=== PATIENT | female | born 1950 | race Caucasian/White ===

== ENCOUNTER 2021-03-25 13:35 | Outpatient (CLI) | payer MEDICARE, OTHER | END 2021-03-25 13:36 | disposition critical access hospital (66) | LOC: EMS 13:35 | DX: R06.02 Shortness of breath (principal); L98.9 Disorder of the skin and subcutaneous tissue, unspecified | CPT/HCPCS: A0425; A0427 ==

== ENCOUNTER 2021-03-25 13:49 | Inpatient (IN) | payer MEDICARE, OTHER ==
[2021-03-25] MEDS ORDERED: IPRATROPIUM/ALBUTEROL 3 ML NEB INH STA (14:08)
--- NOTE | 2021-03-25 14:15 | ED Physician Documentation ---
PD HPI DYSPNEA - Stated complaint Stated Complaint: SOA - Chief complaint Chief Complaint: Cardiac - History obtained from History obtained from: Patient - Additional information Additional information: Patient comes emergency department chief complaint of increasing lower extremity swelling and shortness of breath over the last several weeks. She states that she has a history of lymphedema that started sometime after treatment for an abdominal cancer in the early . She states that the swelling did not come up right away but developed symptoms afterward and she was told she had lymphedema. Patient states that it has been at its worst for about the past year. Patient denies any fever chills. She does not generally use oxygen at home and is not known to have any lung disorder she states. She is not a smoker herself, but states that she has received secondhand smoke, both from growing up with her parents who both smoked and then living with her for many years who also smoked. Patient uses an albuterol inhaler occasionally. No other complaints at this time. She states that she has had a Covid vaccine and has not had any exposures that she knows of. Review of Systems Ten Systems: 10 systems reviewed and negative Constitutional: reports: Reviewed and negative Eyes: reports: Reviewed and negative Ears: reports: Reviewed and negative Nose: reports: Reviewed and negative Throat: reports: Reviewed and negative Cardiac: reports: Reviewed and negative Respiratory: reports: Dyspnea, Cough (Existing) GI: reports: Reviewed and negative : reports: Reviewed and negative Skin: reports: Reviewed and negative Musculoskeletal: reports: Extremity swelling Neurologic: reports: Reviewed and negative Psychiatric: reports: Reviewed and negative Endocrine: reports: Reviewed and negative Immunocompromised: reports: Reviewed and negative PD PAST MEDICAL HISTORY - Present Medications Home Medications: Ambulatory Orders Medication Instructions Recorded Confirmed Albuterol Sulfate [Proair 90 mcg IH PRN PRN 03/25/21 03/25/21 Digihaler] Empagliflozin [Jardiance] 1 tab PO DAILY 03/25/21 03/25/21 Furosemide [Lasix] 40 mg PO DAILY 03/25/21 03/25/21 Glipizide [Glipizide Xl] 5 mg PO BID 03/25/21 03/25/21 Levothyroxine Sodium [Synthroid] 1 tab PO DAILY 03/25/21 03/25/21 Losartan Potassium 50 mg PO DAILY 03/25/21 03/25/21 Metformin HCl [Metformin ER 500 mg PO BID 03/25/21 03/25/21 Gastric] Potassium Chloride [Klor-Con 10] 10 meq PO DAILY 03/25/21 03/25/21 - Allergies Allergies/Adverse Reactions: Allergies Allergy/AdvReac Type Severity Reaction Status Date / Time propoxyphene [From Darvon] Allergy Hives Verified 03/25/21 14:11 PD ED PE NORMAL - Vitals Vital signs reviewed: Yes - General General: Alert and oriented X 3, Other (Moderate respiratory distress off oxygen, speaking in phrases.) - HEENT HEENT: Atraumatic, PERRL, EOMI, Moist mucous membranes - Neck Neck: Supple, no meningeal sign - Cardiac Cardiac: RRR, No murmur, Strong equal pulses - Respiratory Respiratory: Clear bilaterally, Other (No respiratory distress, speaking in phrases; cyanosis of the lips noted. Pursed lip breathing noted.) - Abdomen Abdomen: Normal bowel sounds, Soft, Non tender, Non distended - Derm Derm: Normal color, Warm and dry, No rash - Extremities Extremities: No deformity, Other (Marked, severe, symmetrical edema bilateral lower legs and feet, with woody, chronically edematous appearing skin. 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, Normal speech - Psych Psych: Normal mood, Normal affect Results - Vitals Vitals: Vital Signs - 24 hr 03/25/21 03/25/21 03/25/21 14:01 14:12 14:42 Temperature 36.7 C Heart Rate 82 78 75 Respiratory 26 H 28 H 20 Rate Blood Pressure 172/95 H 170/89 H O2 Saturation 85 L 93 03/25/21 03/25/21 03/25/21 15:42 16:56 17:02 Temperature Heart Rate 78 88 84 Respiratory 21 17 11 L Rate Blood Pressure 161/91 H 172/86 H 149/92 H O2 Saturation 98 97 96 Oxygen O2 Source Nasal cannula - EKG (time done) 1514 Rate: Rate (enter#) (79) Rhythm: Atrial fibrillation, Other (PVC) [place]: Normal Intervals: Normal OK QRS: Normal Ischemia: Normal ST segments Compare to prior EKG: Old EKG unavailable Computer interpretation: Agree with computer - Labs Labs: Laboratory Tests 03/25/21 03/25/21 03/25/21 14:24 14:24 14:24 WBC 6.3 RBC 4.77 Hgb 14.0 Hct 45.6 MCV 95.6 MCH 29.4 MCHC 30.7 L RDW 14.5 Plt Count 193 MPV 9.4 Neut # (Auto) 4.2 Lymph # (Auto) 1.4 L [place] # (Auto) 0.4 Eos # (Auto) 0.2 Baso # (Auto) 0.0 Absolute Nucleated RBC 0.00 Nucleated RBC % 0.0 Sodium 135 Potassium 3.0 L Chloride 91 L Carbon Dioxide 32 Anion Gap 12.0 BUN 13 Creatinine 0.7 Estimated GFR (MDRD) 82 L Glucose 206 H Calcium 8.9 Total Bilirubin 0.6 AST 29 ALT 26 Alkaline Phosphatase 75 Troponin I High Sens B-Natriuretic Peptide 75 Total Protein 7.5 Albumin 3.9 Globulin 3.6 Albumin/Globulin Ratio 1.1 Lipase 22 03/25/21 14:24 WBC RBC Hgb Hct MCV MCH MCHC RDW Plt Count MPV Neut # (Auto) Lymph # (Auto) [place] # (Auto) Eos # (Auto) Baso # (Auto) Absolute Nucleated RBC Nucleated RBC % Sodium Potassium Chloride Carbon Dioxide Anion Gap BUN Creatinine Estimated GFR (MDRD) Glucose Calcium Total Bilirubin AST ALT Alkaline Phosphatase Troponin I High Sens 6.7 B-Natriuretic Peptide Total Protein Albumin Globulin Albumin/Globulin Ratio Lipase - Rads (name of study) CXR Radiology: Final report received, EMP read indepedently, See rad report (atelectasis vs pneumonia.) CTA chest Radiology: Final report received, EMP read indepedently, See rad report (neg) PD MEDICAL DECISION MAKING - ED course Complexity details: reviewed results, re-evaluated patient, considered differential, d/w patient ED course: The patient was worked up with labs, EKG, and chest x-ray. She was treated with an albuterol/ipratropium DuoNeb treatment. She reported feeling better after this, but then had significant dyspnea with sats dropping to 88% on 2L O2 and several minutes recovery time. Her BNP, surprisingly, was normal. WBC count an d trop were also normal. Cxr showed possible pneumonia vs atelectasis, so pt was given abx. She also demonstrated cardiomegaly. I sent her for CTA chest to evaluate for possible PE, and this was negative. After all of this, I spoke with the pt and , who expressed concern over the degree of dyspnea the pt has when trying to simply ambulate around the house. Pt reported feeling much better on than off oxygen. I felt she would benefit from admission, echo, and potentially, eval for prn home O2. I spoke with Dr. Metcalf, who agreed to admit the pt to his service. Departure - Departure Disposition: ED Place in Observation Clinical Impression: Hypoxia Dyspnea Qualifiers: Dyspnea type: dyspnea on exertion Qualified Code(s): R06.00 - Dyspnea, unspecified Condition: Serious Discharge Date/Time: 03/25/21 18:19
[2021-03-25 14:27] LABS: BASOPHILS % (AUTO) 0.6 %; EOSINOPHILS # (AUTO) 0.2 10^3/uL (0.0-0.7); EOSINOPHILS % (AUTO) 2.5 %; HCT - HEMATOCRIT 45.6 % (37.0-47.0); LYMPHOCYTES # (AUTO) 1.4 10^3/uL (1.5-3.5); LYMPHOCYTES % (AUTO) 22.4 %; MEAN CORPUSCULAR HEMOGLOBIN 29.4 pg (27.0-31.0); MEAN CORPUSCULAR HGB CONC 30.7 g/dL (32.0-36.0); MEAN CORPUSCULAR VOLUME 95.6 fL (81.0-99.0); MEAN PLATELET VOLUME 9.4 fL (7.9-10.8); MONOCYTES # (AUTO) 0.4 10^3/uL (0.0-1.0); NEUTROPHILS # (AUTO) 4.2 10^3/uL (1.5-6.6); NEUTROPHILS % (AUTO) 66.9 %; PLT - PLATELET COUNT 193 10^3/uL (130-450); RED BLOOD COUNT 4.77 10^6/uL (4.20-5.40); RED CELL DISTRIBUTION WIDTH 14.5 % (12.0-15.0); WHITE BLOOD COUNT 6.3 x10^3/uL (4.8-10.8)
--- NOTE | 2021-03-25 14:28 | XRAY Report ---
PROCEDURE: Chest 1 View X-Ray INDICATIONS: chest pain TECHNIQUE: One view of the chest was acquired. COMPARISON: None FINDINGS: Surgical changes and devices: None. Lungs and pleura: No pleural effusions or pneumothorax. Mild patchy right basilar opacity. Mediastinum: Mediastinal contours appear normal. Heart size is enlarged. Bones and chest wall: No suspicious bony lesions. Overlying soft tissues appear unremarkable. IMPRESSION: Cardiomegaly. Mild patchy right basilar atelectasis versus pneumonia. Reviewed by: James Barber MD on 03/25/2021 2:27 PM PDT Approved by: James Barber MD on 03/25/2021 2:27 PM PDT Station ID: [id number]
[2021-03-25 14:41] LABS: ALBUMIN 3.9 g/dL (3.2-5.5); ALBUMIN/GLOBULIN RATIO 1.1 (1.0-2.2); BILIRUBIN,TOTAL 0.6 mg/dL (0.2-1.0); CALCIUM 8.9 mg/dL (8.5-10.3); CREATININE 0.7 mg/dL (0.4-1.0); TOTAL PROTEIN 7.5 g/dL (6.7-8.2)
[2021-03-25] MEDS ORDERED: POTASSIUM CHLORIDE 20 MEQ TABLET PO STA (15:38)
[2021-03-25] MEDS ORDERED: cefTRIAXone 2 GM in SODIUM CHLORIDE 0.9% MINIBAG 100 ML IV STA (15:39)
[2021-03-25] MEDS ORDERED: AZITHROMYCIN 250 MG TABLET PO STA (15:39)
[2021-03-25] MEDS ORDERED: IOPAMIDOL-300 100 ML VIAL ONE (15:56)
--- NOTE | 2021-03-25 16:58 | CT Report ---
PROCEDURE: CT angiography of the ches INDICATIONS: hypoxia, dyspnea, cyanosis CONTRAST: IV CONTRAST: Isovue 300 ml: 80 PO CONTRAST: *NO PO CONTRAST TECHNIQUE: After the administration of intravenous contrast, images were acquired from the pulmonary apices to t he posterior costophrenic angles. 3-dimensional maximum intensity projection (MIP) coronal and sagit clemente reformats were then acquired through the thorax. For radiation dose reduction, the following was used: automated exposure control, adjustment of mA and/or kV according to patient size. COMPARISON: FINDINGS: Image quality: Excellent. Pulmonary arteries: Pulmonary arteries are enlarged,, and demonstrate no intraluminal filling defect s to suggest central pulmonary embolism. Lungs and pleura: Lungs are clear. No pleural effusions or pneumothorax. Central and peripheral ai rways are patent. Mediastinum: Heart size is enlarged, without pericardial effusion. There is mild calcification of t he coronary vasculature. No mediastinal or hilar adenopathy. Thoracic aorta is normal in caliber and enhancement. Esophagus is normal in caliber, without hiatal hernia. Bones and chest wall: No suspicious bony lesions. Ribs and thoracic spine appear intact throughout. No axillary or supraclavicular adenopathy. The thyroid is normal in size and there are no incident al findings. Abdomen: Visualized portions of the upper abdomen demonstrate multiple calculi within the gallbladde r lumen. IMPRESSION: 1. No acute process. 2. No pulmonary embolus. 3. Pulmonary hypertension. 4. Cardiomegaly. Coronary artery disease. 5. Cholelithiasis. CLINICAL RECOMMENDATION STATEMENTS: In patients <35 years with an ITN detected on CT, MRI, or extrathyroidal ultrasound, the Committee re commends further evaluation with dedicated thyroid ultrasound if the nodule is ?1 cm and has no suspi cious imaging features, and if the patient has normal life expectancy. In patients ?35 years with an ITN detected on CT, MRI, or extrathyroidal ultrasound, the Committee re commends further evaluation with dedicated thyroid ultrasound if the nodule is ?1.5 cm and has no asael picious imaging features, and if the patient has normal life expectancy. (ACR, 2014) Reviewed by: James Barber MD on 03/25/2021 4:56 PM PDT Approved by: James Barber MD on 03/25/2021 4:56 PM PDT Station ID: [id number]
[2021-03-25] MEDS ORDERED: SODIUM CHLORIDE FLUSH 0.9% 10 ML SYRINGE IVP PRN (17:38)
[2021-03-25] MEDS ORDERED: ONDANSETRON 4 MG/2 ML VIAL IVP PRN (17:38)
[2021-03-25] MEDS ORDERED: ACETAMINOPHEN 325 MG TABLET PO PRN (17:38)
[2021-03-25] MEDS ORDERED: ONDANSETRON ODT 4 MG TABLET TL PRN (17:38)
[2021-03-25] MEDS ORDERED: FUROSEMIDE 40 MG/4 ML VIAL IVP STA (17:41)
[2021-03-25] MEDS ORDERED: ALBUTEROL NEB 2.5 MG/3 ML INH PRN (17:42)
--- NOTE | 2021-03-25 18:02 | HISTORY & PHYSICAL EXAMINATION ---
Chief Complaint - Chief Complaint Chief Complaint: shortness of breath History of Present Illness - Admitted From Admitted From:: medical floor - History Obtained From Records Reviewed: [facility] History obtained from: pt Exam Limitations: no - History of Present Illness HPI Comment/Other: This is a 71-years old female with a past medical history significant for hypertension, asthma, diabetes, abdominal cancer, obesity, bilateral lower extremity lymphedema who present ER complain of shortness of breath and Bilaterally worsening edema. pt report she had increasing lower extremity swelling and shortness of breath over the last several weeks. she feel significantly shortness of breath since yesterday with dry cough. On arrival in the ER she had cyanosis around the lips. She had O2 sat 85 % on room air with Increased work of breathing while at rest. CTA of the chest show no acute process, no PE, with pulmonary hypertension and cardiomegaly, coronary artery disease. After the patient was treated with DuoNeb in the ER, patient oxygen saturation has improved. pt report she is not a cigarette smoker but she has received secondhand smoker, from her parents who both smoked and her living for many years. pt present shortness of breath even she can not finish the whole sentence. But she feel comfortable at the rest. She reported she developed lymphedema on her both legs about 2 years ago. Pt report She did see specialist for lymphedema but not much improved. There has drainage on left lower extremity with ulcer. Both leg show significant erythema, swelling, warmth. She denies fever, chill or chest pain. discussed the care goal with patient, patient would like to have DNR. She reported she have a DNR POLST form in the home at the door of refrigerator. 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 Her mother at age 85 from stomach problem, Patient was unknown the detail. Social History Notes: Patient reported she never smoke, but is exposed to significant secondhand smoking. Denies alcohol or drug problem. - POLST Patient has POLST: No Meds/Allgy - Home Medications Home Medications: Ambulatory Orders Medication Instructions Recorded Confirmed Albuterol Sulfate [Proair 90 mcg IH PRN PRN 03/25/21 03/25/21 Digihaler] Empagliflozin [Jardiance] 1 tab PO DAILY 03/25/21 03/25/21 Furosemide [Lasix] 40 mg PO DAILY 03/25/21 03/25/21 Glipizide [Glipizide Xl] 5 mg PO BID 03/25/21 03/25/21 Levothyroxine Sodium [Synthroid] 1 tab PO DAILY 03/25/21 03/25/21 Losartan Potassium 50 mg PO DAILY 03/25/21 03/25/21 Metformin HCl [Metformin ER 500 mg PO BID 03/25/21 03/25/21 Gastric] Potassium Chloride [Klor-Con 10] 10 meq PO DAILY 03/25/21 03/25/21 - Allergies Allergies/Adverse Reactions: Allergies Allergy/AdvReac Type Severity Reaction Status Date / Time propoxyphene [From Darvon] Allergy Hives Verified 03/25/21 14:11 Review of Systems - Constitutional Constitutional: denies: Fever, Chills - Eyes Eyes: denies: Pain, Field loss, Vision loss - Ears, Nose & Throat Ears, Nose & Throat: denies: Ear pain, Nosebleeds - Cardiovascular Cariovascular: reports: Exertional dyspnea, Decr. exercise tolerance. denies: Irregular heart rate, Palpitations, Chest pain, Syncope - Respiratory Respiratory: reports: Cough, SOB at rest, SOB with exertion. denies: Sputum production, Wheezing - Gastrointestinal Gastrointestinal: denies: Abdominal pain, Diarrhea, Nausea, Vomiting - Genitourinary Genitourinary: denies: Dysuria, Urgency - Musculoskeletal Musculoskeletal: denies: Muscle pain, Muscle aches - Integumentary Integumentary: denies: Rash - Neurological Neurological: denies: Focal weakness, Headache, Dizziness, Numbness, Pre- existing deficit, Abnormal gait, Seizures, Incoordination, Slurred speech - Psychiatric Psychiatric: denies: Depression - Endocrine Endocrine: denies: Polyuria - Hematologic/Lymphatic Hematologic/Lymphatic: denies: Anemia Exam - Vital Signs Vital Signs: Vital Signs x48h Temp Pulse Resp BP Pulse Ox 03/25/21 17:47 36.2 C L 88 15 164/98 H 98 03/25/21 17:02 84 11 L 149/92 H 96 03/25/21 16:56 88 17 172/86 H 97 03/25/21 15:42 78 21 161/91 H 98 03/25/21 14:42 75 20 03/25/21 14:12 78 28 H 170/89 H 93 03/25/21 14:01 36.7 C 82 26 H 172/95 H 85 L - Physical Exam General Appearance: positive: Alert, Mild distress. negative: Lethargic Eyes Bilateral: positive: Normal inspection, PERRL, No lid inflammation ENT: positive: ENT inspection nml, No signs of dehydration. negative: Purulent nasal drainage Neck: positive: Nml inspection, Trachea midline. negative: Thyromegaly, Tracheal deviation Respiratory: positive: Chest non-tender, Other (Significantly bilaterally diminished lung sounds.) Cardiovascular: positive: Regular rate & rhythm, No murmur. negative: Tachycardia, Bradycardia, Systolic murmur, Diastolic murmur Peripheral Pulses: positive: 2+ Abdomen: positive: Non-tender, Nml bowel sounds, No distention. negative: Tenderness Back: positive: Nml inspection Skin: positive: Warm, Dry, Laceration (cm), Other (Bilaterally lower extremity present erythema, swelling, warmth. Left lower extremity had drainage and skin ulcer. Patient denies pain.). negative: Cyanosis Extremities: positive: Full ROM, Pedal edema. negative: Calf tenderness Neurologic/Psychiatric: positive: Oriented x3, Motor nml, Sensation nml. ne gative: Weakness, Sensory loss, Facial droop, Slurred/abnml speech, Depressed mood/affect Conclusion/Plan - Problem List (1) Respiratory failure with hypoxia Conclusion/Plan: Patient had only 85% O2 saturation in room air at her admission. On arrival in the ER she had cyanosis around the lips. she still cannot finish the whole sentence when she spoke. On the examination, Patient present significantly bilaterally diminished lung sounds but did not show wheezy. CTA show no PE. we will treat COPD exacerbation, solu-metro IV, Duoneb, albuterol, and pulmicort, Supplemental oxygen as needed (2) COPD exacerbation Conclusion/Plan: Patient still present shortness of breathing, she cannot finish the whole sentence when she spoke. On arrival in the ER she had cyanosis around the lips. Patient also present significantly bilaterally diminished lung sounds in the exam but did not show wheezy. Patient had only 85% O2 saturation in room air at her admission.Duoneb treatment did help pt's O2 sats. plan: solu-metro IV, Duoneb, albuterol, and pulmicort, Supplemental oxygen as needed (3) Venous stasis ulcer Conclusion/Plan: Patient has history of lymphedema, patient's bilaterally lower extremity present venous stasis. Left lower extremity has drainage and ulcer. Both lower extremities show mild to moderate swelling, erythema, warmth. We will send drainage for wound culture, will treat antibiotics, and do blood culture. encourage pt rise her legs to help venous return. order US to r/o DVT. nurse continue skin care for pt (4) Lymphedema Conclusion/Plan: Patient reported she developed lymphedema about 2 years ago, she was follow-up by specialist To treat her lymphedema But poor improved. Patient reported she walk by use of walker. Encourage patient rise of her both legs to help venous b lood return, and continue safely walk, continue skin care. Pt take lasix at home, will resume. (5) Diabetes Conclusion/Plan: We will start with the patient with a sliding scale, glucose check and hypoglycemia protocol, check A1C (6) HTN (hypertension) Conclusion/Plan: Stable, resume patient home medication Losartan (7) Hypothyroidism Conclusion/Plan: We will check TSH, resume home Synthroid - Lab Results Fish Bones: 03/26/21 04:48 03/26/21 04:48 Core Measures - Anticipated LOS I expect patient to be DC'd or transferred within 96 hours.: Yes - DVT/VTE - Prophylaxis VTE/DVT Device ordered at admit?: Yes VTE/DVT Prophylaxis med ordered at admit?: Yes
[2021-03-25] MEDS ORDERED: methylPREDNISolone SUCCINATE 40 MG/ML VIAL IVP SCH (18:44)
[2021-03-25 18:47] LABS: B. PARAPERTUSSIS- RESP PCR PAN NOT DETECTED; B. PERTUSSIS- RESP PCR PANEL NOT DETECTED; C. PNEUMONIAE- RESP PCR PANEL NOT DETECTED; CORONAVIRUS 229E-RESP PCR NOT DETECTED; CORONAVIRUS HKU1-RESP PCR NOT DETECTED; CORONAVIRUS NL63-RESP PCR NOT DETECTED; CORONAVIRUS OC43-RESP PCR NOT DETECTED; HUMAN METAPNEUMOVIRUS NOT DETECTED; INFLUENZA A- RESP PCR PANEL NOT DETECTED; INFLUENZA B - RESP PCR PANEL NOT DETECTED; M. PNEUMONIAE- RESP PCR PANEL NOT DETECTED; PARAINFLUENZA VIRUS 1 NOT DETECTED; PARAINFLUENZA VIRUS 2 NOT DETECTED; PARAINFLUENZA VIRUS 3 NOT DETECTED; PARAINFLUENZA VIRUS 4 NOT DETECTED; RHINOVIRUS/ENTEROVIRUS NOT DETECTED; RSV- RESP PCR PANEL NOT DETECTED; SARS-CoV-2 -RESP PCR PANEL NOT DETECTED
[2021-03-25] MEDS: LOSARTAN 50 MG TABLET PO SCH (18:58)
[2021-03-25] MEDS ORDERED: predniSONE 20 MG TABLET PO SCH (19:00)
[2021-03-25] MEDS ORDERED: IOPAMIDOL-300 100 ML VIAL IVP ONE (19:18)
[2021-03-25] MEDS: BUDESONIDE 0.5 MG/2 ML NEB INH SCH (19:30)
[2021-03-25] MEDS: IPRATROPIUM/ALBUTEROL 3 ML NEB INH SCH (19:30)
[2021-03-25] MEDS: INSULIN ASPART 300 UNIT/3 ML PEN SUBQ SCH (20:20)
[2021-03-25] MEDS ORDERED: INSULIN GLARGINE 300 UNIT/3 ML PEN SUBQ SCH (21:00)
[2021-03-25] MEDS: methylPREDNISolone SUCCINATE 40 MG/ML VIAL IVP SCH (21:33)
[2021-03-26 06:05] LABS: BASOPHILS % (AUTO) 0.4 %; EOSINOPHILS % (AUTO) 0.1 %; HGB - HEMOGLOBIN 13.2 g/dL (12.0-16.0); LYMPHOCYTES # (AUTO) 0.4 10^3/uL (1.5-3.5); MEAN CORPUSCULAR HEMOGLOBIN 28.7 pg (27.0-31.0); MEAN CORPUSCULAR VOLUME 95.7 fL (81.0-99.0); MEAN PLATELET VOLUME 9.7 fL (7.9-10.8); MONOCYTES # (AUTO) 0.1 10^3/uL (0.0-1.0); MONOCYTES % (AUTO) 1.3 %; NEUTROPHILS # (AUTO) 7.5 10^3/uL (1.5-6.6); NEUTROPHILS % (AUTO) 91.7 %; PLT - PLATELET COUNT 201 10^3/uL (130-450); RED CELL DISTRIBUTION WIDTH 14.6 % (12.0-15.0); WHITE BLOOD COUNT 8.2 x10^3/uL (4.8-10.8)
[2021-03-26 06:18] LABS: CALCIUM 8.8 mg/dL (8.5-10.3); CREATININE 0.7 mg/dL (0.4-1.0); POTASSIUM 4.2 mmol/L (3.5-5.0)
[2021-03-26] MEDS: methylPREDNISolone SUCCINATE 40 MG/ML VIAL IVP SCH (07:06)
[2021-03-26] MEDS: LEVOTHYROXINE 112 MCG TABLET PO SCH (07:06)
[2021-03-26] MEDS: SODIUM CHLORIDE FLUSH 0.9% 10 ML SYRINGE IVP SCH ×3 (07:06→16:59)
[2021-03-26] MEDS: LEVOTHYROXINE 25 MCG TABLET PO SCH (07:06)
[2021-03-26] MEDS: IPRATROPIUM/ALBUTEROL 3 ML NEB INH SCH ×4 (07:45→20:11)
[2021-03-26] MEDS: BUDESONIDE 0.5 MG/2 ML NEB INH SCH ×2 (07:45→20:11)
[2021-03-26] MEDS: AZITHROMYCIN 250 MG TABLET PO SCH (08:19)
[2021-03-26] MEDS: LOSARTAN 50 MG TABLET PO SCH (08:19)
[2021-03-26] MEDS: FUROSEMIDE 40 MG/4 ML VIAL IVP SCH (08:20)
[2021-03-26] MEDS: ENOXAPARIN 40 MG/0.4 ML SYRINGE SUBQ SCH (08:21)
[2021-03-26] MEDS: INSULIN ASPART 300 UNIT/3 ML PEN SUBQ SCH ×6 (08:22→20:32)
[2021-03-26] MEDS ORDERED: cefTRIAXone 2 GM in SODIUM CHLORIDE 0.9% MINIBAG 100 ML IV SCH (09:00)
--- NOTE | 2021-03-26 09:21 | Ultrasound Report ---
PROCEDURE: Duplex Ext Veins Bilateral INDICATIONS: BROWN TECHNIQUE: Real-time imaging, as well as color and pulse Doppler interrogation, were performed of the deep veins of both legs from the inguinal ligament to the popliteal fossa. COMPARISON: None. FINDINGS: The deep veins are normally compressible, and free of intraluminal thrombus. Color and pu lse Doppler demonstrate normal phasic intravascular flow. There is normal augmentation response to d istal compression maneuver. The calf veins are not visualized bilaterally. No Mcneil's cyst identifie d. IMPRESSION: No evidence of deep venous thrombosis. Reviewed by: Ashu Gonzales MD on 03/26/2021 9:20 AM PDT Approved by: Ashu Gonzales MD on 03/26/2021 9:20 AM PDT Station ID: [id number]
--- NOTE | 2021-03-26 09:24 | PHARMACY PROGRESS NOTE ---
- Best Possible Medication History Admit Date and Time: 03/25/21 1738 Processed by: Nursing Medication History completed: Yes Patient Interview: Completed (MED REC COMPLETED BY NURSING) As the person ultimately responsible for medication therapy, providers are able to order a medication from an existing home medication list in [facility] via the "Reconcile Routine" prior to Confirmation of that medication by production support specialist. Such practice is discouraged except when the physician, in their clinical judgment, deems that a medical need exists for a medication without regard to previous use.
--- NOTE | 2021-03-26 10:12 | PROVIDER PROGRESS NOTE ---
Subjective - Prog Note Date Prog Note Date: 03/26/21 - Subjective Pt reports feeling: Improved Subjective: pt report her bilateral lower extremities erythema, swelling are significantly improved "I did not see this great shape for long time." pt still present shortness of breath, but pt slightly improved from yesterday, less shortness of breath when she speak. Current Medications - Current Medications Current Medications: Active Medications Acetaminophen (Acetaminophen 325 Mg Tablet) 650 mg PO Q4HR PRN PRN Reason: Pain 1 to 4 Albuterol (Albuterol Neb 2.5 Mg/3 Ml) 2.5 mg INH RTQ4H PRN PRN Reason: Wheezing Albuterol/Ipratropium (Ipratropium/Albuterol 3 Ml Neb) 3 ml INH RTQID [facility] Last Admin: 03/26/21 07:45 Dose: 3 ml Documented by: Azithromycin (Azithromycin 250 Mg Tablet) 250 mg PO DAILY [facility] Last Admin: 03/26/21 08:19 Dose: 250 mg Documented by: Budesonide (Budesonide 0.5 Mg/2 Ml Neb) 0.5 mg INH RTBID [facility] Last Admin: 03/26/21 07:45 Dose: 0.5 mg Documented by: Enoxaparin Sodium (Enoxaparin 40 Mg/0.4 Ml Syringe) 40 mg SUBQ DAILY [facility] Last Admin: 03/26/21 08:21 Dose: 40 mg Documented by: Furosemide (Furosemide 40 Mg/4 Ml Vial) 40 mg IVP DAILY [facility] Last Admin: 03/26/21 08:20 Dose: 40 mg Documented by: Ceftriaxone Sodium 2 gm/ (Sodium Chloride) 100 mls @ 200 mls/hr IV DAILY [facility] Last Admin: 03/26/21 11:11 Dose: 200 mls/hr Documented by: Insulin Aspart (Insulin Aspart 300 Unit/3 Ml Pen) 1 - 9 unit SUBQ 0800,1200, 1700,2100 [facility]; Protocol Last Admin: 03/26/21 11:12 Dose: 9 unit Documented by: Insulin Glargine (Insulin Glargine 300 Unit/3 Ml Pen) 10 unit SUBQ QPM [facility] Last Admin: 03/25/21 20:20 Dose: 10 unit Documented by: Levothyroxine Sodium (Levothyroxine 112 Mcg Tablet) 112 mcg PO QDAC [facility] Last Admin: 03/26/21 07:06 Dose: 112 mcg Documented by: Levothyroxine Sodium (Levothyroxine 25 Mcg Tablet) 25 mcg PO QDAC [facility] Last Admin: 03/26/21 07:06 Dose: 25 mcg Documented by: Losartan Potassium (Losartan 50 Mg Tablet) 50 mg PO DAILY [facility] Last Admin: 03/26/21 08:19 Dose: 50 mg Documented by: Methylprednisolone Sodium Succinate (Methylprednisolone Succinate 125 Mg/2 Ml Vial) 60 mg IVP TID [facility] Ondansetron HCl (Ondansetron 4 Mg/2 Ml Vial) 4 mg IVP Q6HR PRN PRN Reason: Nausea / Vomiting Ondansetron HCl (Ondansetron Odt 4 Mg Tablet) 4 mg TL Q6HR PRN PRN Reason: Nausea / Vomiting Sodium Chloride (Sodium Chloride Flush 0.9% 10 Ml Syringe) 10 ml IVP PRN PRN PRN Reason: NEEDED PER PROVIDER ORDERS Sodium Chloride (Sodium Chloride Flush 0.9% 10 Ml Syringe) 10 ml IVP 0100,0900,1700 [facility] Last Admin: 03/26/21 08:20 Dose: 10 ml Documented by: Albuterol Sulfate [Proair Digihaler] 90 mcg IH PRN PRN 03/25/21 Empagliflozin [Jardiance] 1 tab PO DAILY 03/25/21 Furosemide [Lasix] 40 mg PO DAILY 03/25/21 Glipizide [Glipizide Xl] 5 mg PO BID 03/25/21 Levothyroxine Sodium [Synthroid] 1 tab PO DAILY 03/25/21 Losartan Potassium 50 mg PO DAILY 03/25/21 Metformin HCl [Metformin ER Gastric] 500 mg PO BID 03/25/21 Potassium Chloride [Klor-Con 10] 10 meq PO DAILY 03/25/21 Objective - Vital Signs/Intake & Output Vital Signs: Vital Signs x48h Temp Pulse Pulse Resp BP Pulse Ox 03/26/21 10:09 86 L 03/26/21 09:30 78 L 03/26/21 07:49 94 20 03/26/21 07:25 37.3 C 90 20 132/71 H 92 03/26/21 05:00 37.2 C 91 21 149/69 H 91 L Intake & Output: Intake & Output 03/23/21 03/24/21 03/25/21 03/26/21 23:59 23:59 23:59 23:59 Intake Total 337 480 Output Total 950 1300 Balance -613 -820 - Objective General Appearance: positive: Alert, Mild distress. negative: Lethargic Eyes Bilateral: positive: Normal inspection, PERRL, No lid inflammation ENT: positive: ENT inspection nml, No signs of dehydration. negative: Purulent nasal drainage Neck: positive: Nml inspection, Trachea midline. negative: Thyromegaly, Tracheal deviation Respiratory: positive: Chest non-tender, Wheezes, Other (Bilaterally diminished lung sounds) Cardiovascular: positive: Regular rate & rhythm, No murmur. negative: Tachycardia, Bradycardia, Systolic murmur, Diastolic murmur Peripheral Pulses: 2+ Radial (R), 2+ Radial (L) Abdomen: positive: Non-tender, Nml bowel sounds, No distention. negative: Tenderness Back: positive: Nml inspection Skin: positive: Warm, Dry, Other (Significantly reduce erythema and swelling in bilateral lower extremities). negative: Cyanosis Extremities: positive: Non-tender, Full ROM. negative: Calf tenderness Neurologic/Psychiatric: positive: Oriented x3, Motor nml, Sensation nml. negative: Weakness, Sensory loss, Facial droop, Slurred/abnml speech, Depressed mood/affect - Lab Results Fish Bones: 03/26/21 04:48 03/26/21 04:48 Other Labs: Lab Results x24hrs 03/26/21 03/26/21 03/26/21 Range/Units 04:48 04:48 04:48 WBC (4.8-10.8) x10^3/uL RBC (4.20-5.40) 10^6/uL Hgb (12.0-16.0) g/dL Hct (37.0-47.0) % MCV (81.0-99.0) fL MCH (27.0-31.0) pg MCHC (32.0-36.0) g/dL RDW (12.0-15.0) % Plt Count (130-450) 10^3/uL MPV (7.9-10.8) fL Neut # (Auto) (1.5-6.6) 10^3/uL Lymph # (Auto) (1.5-3.5) 10^3/uL [place] # (Auto) (0.0-1.0) 10^3/uL Eos # (Auto) (0.0-0.7) 10^3/uL Baso # (Auto) (0.0-0.1) 10^3/uL Absolute Nucleated RBC x10^3/uL Nucleated RBC % /100WBC Sodium 138 (135-145) mmol/L Potassium 4.2 (3.5-5.0) mmol/L Chloride 94 L (101-111) mmol/L Carbon Dioxide 32 (21-32) mmol/L Anion Gap 12.0 (6-13) BUN 14 (6-20) mg/dL Creatinine 0.7 (0.4-1.0) mg/dL Estimated GFR (MDRD) 82 L (>89) Glucose 317 H (70-100) mg/dL Calcium 8.8 (8.5-10.3) mg/dL Total Bilirubin (0.2-1.0) mg/dL AST (10-42) IU/L ALT (10-60) IU/L Alkaline Phosphatase (42-121) IU/L Troponin I High Sens (2.3-14.8) ng/L B-Natriuretic Peptide 89 (5-100) pg/mL Total Protein (6.7-8.2) g/dL Albumin (3.2-5.5) g/dL Globulin (2.1-4.2) g/dL Albumin/Globulin Ratio (1.0-2.2) Lipase (22-51) U/L TSH 1.63 (0.34-5.60) uIU/mL Nasal Adenovirus (PCR) Nasal B. parapertussis DNA (PCR) Nasal Coronavir 229E PCR Nasal Coronavir HKU1 PCR Nasal Coronavir NL63 PCR Nasal Coronavir OC43 PCR Nasal Enterovir/Rhinovir PCR Nasal Influenza B PCR Nasal Influenza A PCR Nasal Parainfluen 1 PCR Nasal Parainfluen 2 PCR Nasal Parainfluen 3 PCR Nasal Parainfluen 4 PCR Nasal RSV (PCR) Nasal B.pertussis DNA PCR Nasal C.pneumoniae (PCR) [place] Human Metapneumo PCR Nasal M.pneumoniae (PCR) Nasal SARS-CoV-2 (PCR) 03/26/21 03/25/21 03/25/21 Range/Units 04:48 17:41 14:24 WBC 8.2 (4.8-10.8) x10^3/uL RBC 4.60 (4.20-5.40) 10^6/uL Hgb 13.2 (12.0-16.0) g/dL Hct 44.0 (37.0-47.0) % MCV 95.7 (81.0-99.0) fL MCH 28.7 (27.0-31.0) pg MCHC 30.0 L (32.0-36.0) g/dL RDW 14.6 (12.0-15.0) % Plt Count 201 (130-450) 10^3/uL MPV 9.7 (7.9-10.8) fL Neut # (Auto) 7.5 H (1.5-6.6) 10^3/uL Lymph # (Auto) 0.4 L (1.5-3.5) 10^3/uL [place] # (Auto) 0.1 (0.0-1.0) 10^3/uL Eos # (Auto) 0.0 (0.0-0.7) 10^3/uL Baso # (Auto) 0.0 (0.0-0.1) 10^3/uL Absolute Nucleated RBC 0.00 x10^3/uL Nucleated RBC % 0.0 /100WBC Sodium (135-145) mmol/L Potassium (3.5-5.0) mmol/L Chloride (101-111) mmol/L Carbon Dioxide (21-32) mmol/L Anion Gap (6-13) BUN (6-20) mg/dL Creatinine (0.4-1.0) mg/dL Estimated GFR (MDRD) (>89) Glucose (70-100) mg/dL Calcium (8.5-10.3) mg/dL Total Bilirubin (0.2-1.0) mg/dL AST (10-42) IU/L ALT (10-60) IU/L Alkaline Phosphatase (42-121) IU/L Troponin I High Sens 6.7 (2.3-14.8) ng/L B-Natriuretic Peptide (5-100) pg/mL Total Protein (6.7-8.2) g/dL Albumin (3.2-5.5) g/dL Globulin (2.1-4.2) g/dL Albumin/Globulin Ratio (1.0-2.2) Lipase (22-51) U/L TSH (0.34-5.60) uIU/mL Nasal Adenovirus (PCR) NOT DETECTED Nasal B. parapertussis DNA (PCR) NOT DETECTED Nasal Coronavir 229E PCR NOT DETECTED Nasal Coronavir HKU1 PCR NOT DETECTED Nasal Coronavir NL63 PCR NOT DETECTED Nasal Coronavir OC43 PCR NOT DETECTED Nasal Enterovir/Rhinovir PCR NOT DETECTED Nasal Influenza B PCR NOT DETECTED Nasal Influenza A PCR NOT DETECTED Nasal Parainfluen 1 PCR NOT DETECTED Nasal Parainfluen 2 PCR NOT DETECTED Nasal Parainfluen 3 PCR NOT DETECTED Nasal Parainfluen 4 PCR NOT DETECTED Nasal RSV (PCR) NOT DETECTED Nasal B.pertussis DNA PCR NOT DETECTED Nasal C.pneumoniae (PCR) NOT DETECTED [place] Human Metapneumo PCR NOT DETECTED Nasal M.pneumoniae (PCR) NOT DETECTED Nasal SARS-CoV-2 (PCR) NOT DETECTED 03/25/21 03/25/21 03/25/21 Range/Units 14:24 14:24 14:24 WBC 6.3 (4.8-10.8) x10^3/uL RBC 4.77 (4.20-5.40) 10^6/uL Hgb 14.0 (12.0-16.0) g/dL Hct 45.6 (37.0-47.0) % MCV 95.6 (81.0-99.0) fL MCH 29.4 (27.0-31.0) pg MCHC 30.7 L (32.0-36.0) g/dL RDW 14.5 (12.0-15.0) % Plt Count 193 (130-450) 10^3/uL MPV 9.4 (7.9-10.8) fL Neut # (Auto) 4.2 (1.5-6.6) 10^3/uL Lymph # (Auto) 1.4 L (1.5-3.5) 10^3/uL [place] # (Auto) 0.4 (0.0-1.0) 10^3/uL Eos # (Auto) 0.2 (0.0-0.7) 10^3/uL Baso # (Auto) 0.0 (0.0-0.1) 10^3/uL Absolute Nucleated RBC 0.00 x10^3/uL Nucleated RBC % 0.0 /100WBC Sodium 135 (135-145) mmol/L Potassium 3.0 L (3.5-5.0) mmol/L Chloride 91 L (101-111) mmol/L Carbon Dioxide 32 (21-32) mmol/L Anion Gap 12.0 (6-13) BUN 13 (6-20) mg/dL Creatinine 0.7 (0.4-1.0) mg/dL Estimated GFR (MDRD) 82 L (>89) Glucose 206 H (70-100) mg/dL Calcium 8.9 (8.5-10.3) mg/dL Total Bilirubin 0.6 (0.2-1.0) mg/dL AST 29 (10-42) IU/L ALT 26 (10-60) IU/L Alkaline Phosphatase 75 (42-121) IU/L Troponin I High Sens (2.3-14.8) ng/L B-Natriuretic Peptide 75 (5-100) pg/mL Total Protein 7.5 (6.7-8.2) g/dL Albumin 3.9 (3.2-5.5) g/dL Globulin 3.6 (2.1-4.2) g/dL Albumin/Globulin Ratio 1.1 (1.0-2.2) Lipase 22 (22-51) U/L TSH (0.34-5.60) uIU/mL Nasal Adenovirus (PCR) Nasal B. parapertussis DNA (PCR) Nasal Coronavir 229E PCR Nasal Coronavir HKU1 PCR Nasal Coronavir NL63 PCR Nasal Coronavir OC43 PCR Nasal Enterovir/Rhinovir PCR Nasal Influenza B PCR Nasal Influenza A PCR Nasal Parainfluen 1 PCR Nasal Parainfluen 2 PCR Nasal Parainfluen 3 PCR Nasal Parainfluen 4 PCR Nasal RSV (PCR) Nasal B.pertussis DNA PCR Nasal C.pneumoniae (PCR) [place] Human Metapneumo PCR Nasal M.pneumoniae (PCR) Nasal SARS-CoV-2 (PCR) ABX Reporting Has patient been on IV antibiotics over the past 48 hours?: Yes Assessment/Plan - Problem List (1) Respiratory failure with hypoxia Impression: 8/6 slightly improved, less shortness of breath when she speak, she can finish the whole sentence today. But nurse report her O2 sat drop to 70% on room air. increase her solu-metrol IV, continue scheduled breath treatment, supplement of O2 as needed. Patient had only 85% O2 saturation in room air at her admission. On arrival in the ER she had cyanosis around the lips. she still cannot finish the whole sentence when she spoke. On the examination, Patient present significantly bilaterally diminished lung sounds but did not show wheezy. CTA show no PE. we will treat COPD exacerbation, solu-metro IV, Duoneb, albuterol, and pulmicort, Supplemental oxygen as needed (2) COPD exacerbation Conclusion/Plan: 03/26 slightly improved, will continue solu-metrol, continue scheduled breath treatment, supplement of O2 as needed. Patient still present shortness of breathing, she cannot finish the whole sentence when she spoke. On arrival in the ER she had cyanosis around the lips. Patient also present significantly bilaterally diminished lung sounds in the exam but did not show wheezy. Patient had only 85% O2 saturation in room air at her admission.Duoneb treatment did help pt's O2 sats. plan: solu-metro IV, Duoneb, albuterol, and pulmicort, Supplemental oxygen as needed (3) Venous stasis ulcer Conclusion/Plan: 03/26 significantly improved on swelling and redness. continue IV lasix, antibiotics, and rise her legs. Patient has history of lymphedema, patient's bilaterally lower extremity present venous stasis. Left lower extremity has drainage and ulcer. Both lower extremities show mild to moderate swelling, erythema, warmth. We will send d rainage for wound culture, will treat antibiotics, and do blood culture. encourage pt rise her legs to help venous return. order US to r/o DVT. nurse continue skin care for pt (4) Lymphedema Conclusion/Plan: 03/26 significantly improved on swelling and redness. Patient reported she developed lymphedema about 2 years ago, she was follow-up by specialist To treat her lymphedema But poor improved. Patient reported she walk by use of walker. Encourage patient rise of her both legs to help venous blood return, and continue safely walk, continue skin care. Pt take lasix at home, will resume. (5) Diabetes Conclusion/Plan: 03/26 pt is on steroid for her COPD treatment, add scheduled Novolog, continue slide scale, continue glucose check, continue hypoglycemia protocol. We will start with the patient with a sliding scale, glucose check and hypoglycemia protocol, check A1C (6) HTN (hypertension) Conclusion/Plan: Stable, resume patient home medication Losartan (7) Hypothyroidism Conclusion/Plan: We will check TSH, resume home Synthroid
[2021-03-26] MEDS: cefTRIAXone 2 GM in SODIUM CHLORIDE 0.9% MINIBAG 100 ML IV SCH (11:11)
[2021-03-26 11:18] LABS: ESTIMATED AVERAGE GLUCOSE 226 mg/dL (70-100); HEMOGLOBIN A1c% 9.5 % (4.27-6.07)
[2021-03-26] MEDS: methylPREDNISolone SUCCINATE 125 MG/2 ML VIAL IVP SCH ×2 (13:22→21:10)
[2021-03-26] MEDS ORDERED: INSULIN GLARGINE 300 UNIT/3 ML PEN SUBQ SCH (21:00)
[2021-03-27] MEDS: SODIUM CHLORIDE FLUSH 0.9% 10 ML SYRINGE IVP SCH ×3 (00:09→17:01)
[2021-03-27 05:17] LABS: BASOPHILS % (AUTO) 0.2 %; HCT - HEMATOCRIT 43.8 % (37.0-47.0); HGB - HEMOGLOBIN 13.1 g/dL (12.0-16.0); LYMPHOCYTES % (AUTO) 3.4 %; MEAN CORPUSCULAR HGB CONC 29.9 g/dL (32.0-36.0); MEAN CORPUSCULAR VOLUME 96.9 fL (81.0-99.0); MEAN PLATELET VOLUME 9.6 fL (7.9-10.8); MONOCYTES % (AUTO) 1.5 %; PLT - PLATELET COUNT 201 10^3/uL (130-450); RED BLOOD COUNT 4.52 10^6/uL (4.20-5.40); RED CELL DISTRIBUTION WIDTH 14.6 % (12.0-15.0); WHITE BLOOD COUNT 11.1 x10^3/uL (4.8-10.8)
[2021-03-27 05:25] LABS: ABNORMAL LYMPHS % (MANUAL) 0 %; BAND NEUTROPHILS % (MANUAL) 0 %; CREATININE 0.7 mg/dL (0.4-1.0); POTASSIUM 4.3 mmol/L (3.5-5.0)
[2021-03-27 05:39] LABS: LYMPHOCYTES # (MANUAL) 0.3 10^3/uL (1.5-3.5); LYMPHOCYTES % (MANUAL) 3 %; MONOCYTES # (MANUAL) 0.2 10^3/uL (0.0-1.0); NEUTROPHILS # (MANUAL) 10.5 10^3/uL (1.5-6.6)
[2021-03-27 05:40] LABS: DIFFERENTIAL COMMENT MANUAL DIFFERENTIAL; PLATELET ESTIMATE, MANUAL NORMAL (130-450,000) (NORMAL); PLATELET MORPHOLOGY NORMAL APPEARANCE (NORMAL); RBC MORPHOLOGY (MULTIPLE) NORMAL APPEARANCE (NORMAL); WBC MORPHOLOGY (MULTIPLE) NORMAL APPEARANCE (NORMAL)
[2021-03-27] MEDS: LEVOTHYROXINE 25 MCG TABLET PO SCH (06:11)
[2021-03-27] MEDS: LEVOTHYROXINE 112 MCG TABLET PO SCH (06:11)
[2021-03-27] MEDS: methylPREDNISolone SUCCINATE 125 MG/2 ML VIAL IVP SCH (06:11)
[2021-03-27] MEDS: BUDESONIDE 0.5 MG/2 ML NEB INH SCH ×2 (07:24→20:35)
[2021-03-27] MEDS: IPRATROPIUM/ALBUTEROL 3 ML NEB INH SCH ×4 (07:24→20:35)
[2021-03-27] MEDS: AZITHROMYCIN 250 MG TABLET PO SCH (09:54)
[2021-03-27] MEDS: LOSARTAN 50 MG TABLET PO SCH (09:54)
[2021-03-27] MEDS: INSULIN ASPART 300 UNIT/3 ML PEN SUBQ SCH ×7 (09:55→20:33)
[2021-03-27] MEDS: ENOXAPARIN 40 MG/0.4 ML SYRINGE SUBQ SCH (09:57)
[2021-03-27] MEDS: FUROSEMIDE 40 MG/4 ML VIAL IVP SCH (09:59)
[2021-03-27] MEDS: cefTRIAXone 2 GM in SODIUM CHLORIDE 0.9% MINIBAG 100 ML IV SCH (10:02)
--- NOTE | 2021-03-27 10:17 | XRAY Report ---
PROCEDURE: Chest 1 View X-Ray INDICATIONS: Hypoxia. Dyspnea. TECHNIQUE: One view of the chest was acquired. COMPARISON: 03/25/2021 FINDINGS: Surgical changes and devices: None. Lungs and pleura: No pleural effusions or pneumothorax. No focal infiltrates are seen. Mild general ized interstitial prominence can be seen. Mediastinum: Mediastinal contours appear normal. Heart size is moderately enlarged. Bones and chest wall: No suspicious bony lesions. Overlying soft tissues appear unremarkable. IMPRESSION: Cardiomegaly and interstitial prominence. Please consider CHF. Reviewed by: Slade Call MD on 03/27/2021 9:16 AM [facility] Approved by: Slade Call MD on 03/27/2021 9:16 AM [facility] Station ID: [id number]
[2021-03-27 10:54] LABS: ABG BASE EXCESS 9.4 mmol/L (-2.0-3.0); ABG HCO3 37.7 mmol/L (22.0-26.0); ABG OXYGEN SATURATION 93 % (94-98); ABG PH 7.35 (7.35-7.45); ABG PO2 67 mmHg (80-100); ALLEN TEST POSITIVE
[2021-03-27 10:59] LABS: ABG PCO2 69 mmHg (34-45); ABG TCO2 39.8 MMOL/L (21.0-29.0)
--- NOTE | 2021-03-27 11:45 | PROVIDER PROGRESS NOTE ---
Subjective - Prog Note Date Prog Note Date: 03/27/21 - Subjective Subjective: She reports feeling short of breath still. She has no cough or wheezing. She is very happy that her lower extremity edema is improved. She denies any chest pain. Current Medications - Current Medications Current Medications: Active Medications Acetaminophen (Acetaminophen 325 Mg Tablet) 650 mg PO Q4HR PRN PRN Reason: Pain 1 to 4 Albuterol (Albuterol Neb 2.5 Mg/3 Ml) 2.5 mg INH RTQ4H PRN PRN Reason: Wheezing Last Admin: 03/27/21 00:15 Dose: 2.5 mg Documented by: Albuterol/Ipratropium (Ipratropium/Albuterol 3 Ml Neb) 3 ml INH RTQID [facility] Last Admin: 03/27/21 11:22 Dose: 3 ml Documented by: Budesonide (Budesonide 0.5 Mg/2 Ml Neb) 0.5 mg INH RTBID [facility] Last Admin: 03/27/21 07:24 Dose: 0.5 mg Documented by: Cephalexin (Cephalexin 250 Mg Capsule) 500 mg PO Q6HR [facility] Enoxaparin Sodium (Enoxaparin 40 Mg/0.4 Ml Syringe) [address] [facility] Last Admin: 03/27/21 09:57 Dose: 40 mg Documented by: Insulin Aspart (Insulin Aspart 300 Unit/3 Ml Pen) 2 - 10 unit SUBQ 0800,1200,1700,2100 [facility]; Protocol Last Admin: 03/27/21 09:56 Dose: 8 unit Documented by: Insulin Aspart (Insulin Aspart 300 Unit/3 Ml Pen) [address] [facility] Insulin Glargine (Insulin Glargine 300 Unit/3 Ml Pen) [address] [facility] Levothyroxine Sodium (Levothyroxine 112 Mcg Tablet) [address] [facility] Last Admin: 03/27/21 06:11 Dose: 112 mcg Documented by: Levothyroxine Sodium (Levothyroxine 25 Mcg Tablet) [address] [facility] Last Admin: 03/27/21 06:11 Dose: 25 mcg Documented by: Losartan Potassium (Losartan 50 Mg Tablet) [address] [facility] Last Admin: 03/27/21 09:54 Dose: 50 mg Documented by: Ondansetron HCl (Ondansetron 4 Mg/2 Ml Vial) 4 mg IVP Q6HR PRN PRN Reason: Nausea / Vomiting Ondansetron HCl (Ondansetron Odt 4 Mg Tablet) 4 mg TL Q6HR PRN PRN Reason: Nausea / Vomiting Sodium Chloride (Sodium Chloride Flush 0.9% 10 Ml Syringe) 10 ml IVP PRN PRN PRN Reason: NEEDED PER PROVIDER ORDERS Last Admin: 03/26/21 13:23 Dose: 10 ml Documented by: Sodium Chloride (Sodium Chloride Flush 0.9% 10 Ml Syringe) 10 ml IVP 0100,0900,1700 [facility] Last Admin: 03/27/21 09:59 Dose: 10 ml Documented by: Albuterol Sulfate [Proair Digihaler] 90 mcg IH PRN PRN 03/25/21 Empagliflozin [Jardiance] 1 tab PO DAILY 03/25/21 Furosemide [Lasix] 40 mg PO DAILY 03/25/21 Glipizide [Glipizide Xl] 5 mg PO BID 03/25/21 Levothyroxine Sodium [Synthroid] 1 tab PO DAILY 03/25/21 Losartan Potassium 50 mg PO DAILY 03/25/21 Metformin HCl [Metformin ER Gastric] 500 mg PO BID 03/25/21 Potassium Chloride [Klor-Con 10] 10 meq PO DAILY 03/25/21 Objective - Vital Signs/Intake & Output Reviewed Vital Signs: Yes Vital Signs: Vital Signs x48h Temp Pulse Pulse Resp BP Pulse Ox 03/27/21 11:22 88 20 03/27/21 08:02 36.6 C 93 16 139/70 H 90 L 03/27/21 07:30 90 20 03/27/21 05:00 37.0 C 91 20 136/75 H 93 Intake & Output: Intake & Output 03/24/21 03/25/21 03/26/21 03/27/21 23:59 23:59 23:59 23:59 Intake Total 337 1237 340 Output Total 950 2200 500 Balance -500 -963 -160 - Objective General Appearance: positive: No acute distress, Alert Eyes Bilateral: positive: Normal inspection, Conjunctivae nml ENT: positive: ENT inspection nml, Other (Nasal cannula in place.) Neck: positive: Nml inspection Respiratory: positive: Other (Does not appear to be distress but is definitely tachypneic at rest. No obvious wheezing or rales noted.). negative: Wheezes, Rales Cardiovascular: positive: Regular rate & rhythm. negative: Tachycardia, Systolic murmur Abdomen: positive: Non-tender, No distention. negative: Tenderness Skin: positive: Warm, Dry, Other (There is a 2 x 1 cm ulceration of the medial aspect of the left lower extremity superior to the ankle. This appears to be healing without any purulent drainage.) Extremities: positive: Pedal edema (1 to +2 pitting edema in the bilateral lower extremities.) Neurologic/Psychiatric: negative: Disoriented to person, Disoriented to place - Lab Results Fish Bones: 03/28/21 05:16 03/28/21 05:16 Other Labs: Lab Results x24hrs 03/27/21 03/27/21 03/27/21 Range/Units 10:40 05:00 05:00 WBC 11.1 H (4.8-10.8) x10^3/uL RBC 4.52 (4.20-5.40) 10^6/uL Hgb 13.1 (12.0-16.0) g/dL Hct 43.8 (37.0-47.0) % MCV 96.9 (81.0-99.0) fL MCH 29.0 (27.0-31.0) pg MCHC 29.9 L (32.0-36.0) g/dL RDW 14.6 (12.0-15.0) % Plt Count 201 (130-450) 10^3/uL MPV 9.6 (7.9-10.8) fL Neut # (Auto) Not Reportable Lymph # (Auto) Not Reportable [place] # (Auto) Not Reportable Eos # (Auto) Not Reportable Baso # (Auto) Not Reportable Absolute Nucleated RBC Not Reportable Total Counted 100 Band Neuts % (Manual) 0 (0 - 10) % Abnorm Lymph % (Manual) 0 % Nucleated RBC % Not Reportable Neutrophils # (Manual) 10.5 H (1.5-6.6) 10^3/uL Lymphocytes # (Manual) 0.3 L (1.5-3.5) 10^3/uL Monocytes # (Manual) 0.2 (0.0-1.0) 10^3/uL Eosinophils # (Manual) 0.0 (0-0.7) 10^3/uL Basophils # (Manual) 0.0 (0-0.1) 10^3/uL Differential Comment MANUAL DIFFERENTIAL WBC Morphology NORMAL APPEARANCE (NORMAL) Platelet Estimate NORMAL (130-450,000) (NORMAL) Platelet Morphology NORMAL APPEARANCE (NORMAL) RBC Morph Micro Appear NORMAL APPEARANCE (NORMAL) Bld Gas Analysis Time 1040 Sample Site LEFT RADIAL ABG pH 7.35 (7.35-7.45) ABG pCO2 69 H* (34-45) mmHg ABG pO2 67 L (80-100) mmHg ABG HCO3 37.7 H (22.0-26.0) mmol/L ABG Total CO2 39.8 H* (21.0-29.0) MMOL/L ABG O2 Saturation 93 L (94-98) % ABG Base Excess 9.4 H (-2.0-3.0) mmol/L Torin Test POSITIVE O2 Delivery Device NASAL CANNULA O2 Liters/Min 4.00 LPM Sodium 138 (135-145) mmol/L Potassium 4.3 (3.5-5.0) mmol/L Chloride 94 L (101-111) mmol/L Carbon Dioxide 35 H (21-32) mmol/L Anion Gap 9.0 (6-13) BUN 19 (6-20) mg/dL Creatinine 0.7 (0.4-1.0) mg/dL Estimated GFR (MDRD) 82 L (>89) Glucose 349 H (70-100) mg/dL Estimat Average Glucose (70-100) mg/dL Hemoglobin A1c % (4.27-6.07) % Calcium 9.0 (8.5-10.3) mg/dL /02/08 Range/Units 04:48 WBC (4.8-10.8) x10^3/uL RBC (4.20-5.40) 10^6/uL Hgb (12.0-16.0) g/dL Hct (37.0-47.0) % MCV (81.0-99.0) fL MCH (27.0-31.0) pg MCHC (32.0-36.0) g/dL RDW (12.0-15.0) % Plt Count (130-450) 10^3/uL MPV (7.9-10.8) fL Neut # (Auto) Lymph # (Auto) [place] # (Auto) Eos # (Auto) Baso # (Auto) Absolute Nucleated RBC Total Counted Band Neuts % (Manual) (0 - 10) % Abnorm Lymph % (Manual) % Nucleated RBC % Neutrophils # (Manual) (1.5-6.6) 10^3/uL Lymphocytes # (Manual) (1.5-3.5) 10^3/uL Monocytes # (Manual) (0.0-1.0) 10^3/uL Eosinophils # (Manual) (0-0.7) 10^3/uL Basophils # (Manual) (0-0.1) 10^3/uL Differential Comment WBC Morphology (NORMAL) Platelet Estimate (NORMAL) Platelet Morphology (NORMAL) RBC Morph Micro Appear (NORMAL) Bld Gas Analysis Time Sample Site ABG pH (7.35-7.45) ABG pCO2 (34-45) mmHg ABG pO2 (80-100) mmHg ABG HCO3 (22.0-26.0) mmol/L ABG Total CO2 (21.0-29.0) MMOL/L ABG O2 Saturation (94-98) % ABG Base Excess (-2.0-3.0) mmol/L Torin Test O2 Delivery Device O2 Liters/Min LPM Sodium (135-145) mmol/L Potassium (3.5-5.0) mmol/L Chloride (101-111) mmol/L Carbon Dioxide (21-32) mmol/L Anion Gap (6-13) BUN (6-20) mg/dL Creatinine (0.4-1.0) mg/dL Estimated GFR (MDRD) (>89) Glucose (70-100) mg/dL Estimat Average Glucose 226 H (70-100) mg/dL Hemoglobin A1c % 9.5 H (4.27-6.07) % Calcium (8.5-10.3) mg/dL ABX Reporting Has patient been on IV antibiotics over the past 48 hours?: Yes Assessment/Plan - Problem List (1) Respiratory failure with hypoxia Impression: The etiology of her acute respiratory failure with hypoxia is not clear. I do suspect she likely has underlying OHS which may be contributing to the hypoxia. I am not sure if she has COPD and her CT did not really suggest emphysematous changes. She not have any obvious wheezing on exam. There is also no evidence of heart failure on imaging and CT angiogram showed no pulmonary embolism. She is obviously quite hypoxic and still quite dyspneic requiring 4 L of oxygen to maintain a saturation of 90%. At this time, we will discontinue steroids given low suspicion for COPD exacerbation. We will obtain an ABG to evaluate if she is hypercapnic and to ensure that she truly is hypoxic. Her echocardiogram did not reveal any significant valvular disease or evidence of heart failure. Her BNP is also been normal all this could be decreased due to her obesity. We will repeat a chest x-ray today to look for any evidence of pulmonary edema or an infiltrate that may have manifested itself. She received 40 mg of IV Lasix this morning and we will continue to diurese her on a daily basis. We will continue oxygen for goal saturation greater than 88%. Qualifiers: Chronicity: acute Qualified Code(s): J96.01 - Acute respiratory failure with hypoxia (2) COPD exacerbation Impression: There was initial concern for COPD exacerbation but at this point time, I feel this is less likely to be the cause of her respiratory failure. We will discontinue the steroids. We will continue with albuterol as needed. (3) Ulcer of left lower extremity Impression: This is secondary to venous stasis and her chronic lymphedema. Her wound culture is growing gram-negative's and gram-positive cocci in pairs and clusters. We will discontinue the ceftriaxone and I placed her on Keflex 500 mg every 6 hours. We will continue with leg elevation and continue to diurese her as her edema is improving. Qualifiers: Non-pressure ulcer stage: limited to breakdown of skin Qualified Code(s): L97.921 - Non-pressure chronic ulcer of unspecified part of left lower leg limited to breakdown of skin (4) Diabetes Impression: Her blood glucose has been poorly controlled in the 300s due to the steroids. Her A1c is 9.5%. I have increased her NovoLog to 10 units with meals and increase her evening dose of Lantus. Her blood glucose should improve now that we have discontinued the steroids. 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 We will continue her home losartan. (6) Hypothyroidism Impression: Stable. Continue her home Synthroid.
[2021-03-27] MEDS: cephALEXin 250 MG CAPSULE PO SCH ×2 (12:58→17:43)
[2021-03-27] MEDS ORDERED: INSULIN GLARGINE 300 UNIT/3 ML PEN SUBQ SCH (21:00)
[2021-03-28] MEDS: SODIUM CHLORIDE FLUSH 0.9% 10 ML SYRINGE IVP SCH ×3 (00:15→16:56)
[2021-03-28] MEDS: cephALEXin 250 MG CAPSULE PO SCH ×3 (00:15→12:54)
[2021-03-28 05:24] LABS: BASOPHILS % (AUTO) 0.3 %; EOSINOPHILS % (AUTO) 0.1 %; HCT - HEMATOCRIT 44.2 % (37.0-47.0); HGB - HEMOGLOBIN 13.1 g/dL (12.0-16.0); LYMPHOCYTES # (AUTO) 1.6 10^3/uL (1.5-3.5); LYMPHOCYTES % (AUTO) 11.5 %; MEAN CORPUSCULAR HEMOGLOBIN 28.4 pg (27.0-31.0); MEAN CORPUSCULAR HGB CONC 29.6 g/dL (32.0-36.0); MEAN CORPUSCULAR VOLUME 95.9 fL (81.0-99.0); MEAN PLATELET VOLUME 9.3 fL (7.9-10.8); MONOCYTES # (AUTO) 0.8 10^3/uL (0.0-1.0); NEUTROPHILS % (AUTO) 81.6 %; PLT - PLATELET COUNT 220 10^3/uL (130-450); RED BLOOD COUNT 4.61 10^6/uL (4.20-5.40); RED CELL DISTRIBUTION WIDTH 14.8 % (12.0-15.0); WHITE BLOOD COUNT 13.5 x10^3/uL (4.8-10.8)
[2021-03-28 05:41] LABS: CALCIUM 9.3 mg/dL (8.5-10.3); CREATININE 0.7 mg/dL (0.4-1.0); POTASSIUM 3.4 mmol/L (3.5-5.0)
[2021-03-28] MEDS: LEVOTHYROXINE 25 MCG TABLET PO SCH (05:58)
[2021-03-28] MEDS: LEVOTHYROXINE 112 MCG TABLET PO SCH (05:58)
[2021-03-28] MEDS: IPRATROPIUM/ALBUTEROL 3 ML NEB INH SCH ×4 (06:13→20:41)
[2021-03-28] MEDS: BUDESONIDE 0.5 MG/2 ML NEB INH SCH ×2 (06:13→20:41)
--- NOTE | 2021-03-28 07:51 | PROVIDER PROGRESS NOTE ---
Subjective - Prog Note Date Prog Note Date: 03/28/21 - Subjective Subjective: She reports feeling much improved today. She feels less short of breath and was even able to walk to the bathroom although she felt like she was hyperventilating when doing that. She feels like her lower extremities are continuing to improve and edema perspective and she is quite happy with that. Denies any chest pain. Current Medications - Current Medications Current Medications: Active Medications Acetaminophen (Acetaminophen 325 Mg Tablet) 650 mg PO Q4HR PRN PRN Reason: Pain 1 to 4 Albuterol (Albuterol Neb 2.5 Mg/3 Ml) 2.5 mg INH RTQ4H PRN PRN Reason: Wheezing Last Admin: 03/27/21 00:15 Dose: 2.5 mg Documented by: Albuterol/Ipratropium (Ipratropium/Albuterol 3 Ml Neb) 3 ml INH RTQID KEYA Last Admin: 03/28/21 11:33 Dose: 3 ml Documented by: Budesonide (Budesonide 0.5 Mg/2 Ml Neb) 0.5 mg INH RTBID KEYA Last Admin: 03/28/21 06:13 Dose: 0.5 mg Documented by: Cephalexin (Cephalexin 250 Mg Capsule) 500 mg PO Q6HR KEYA Last Admin: 03/28/21 12:54 Dose: 500 mg Documented by: Enoxaparin Sodium (Enoxaparin 40 Mg/0.4 Ml Syringe) 40 mg SUBQ DAILY KEYA Last Admin: 03/28/21 09:22 Dose: 40 mg Documented by: Furosemide (Furosemide 40 Mg Tablet) 40 mg PO DAILY KEYA Insulin Aspart (Insulin Aspart 300 Unit/3 Ml Pen) 2 - 10 unit SUBQ 0800,1200,1700,2100 [facility]; Protocol Last Admin: 03/28/21 11:45 Dose: Not Given Documented by: Insulin Aspart (Insulin Aspart 300 Unit/3 Ml Pen) 10 unit SUBQ TIDWM [facility] Last Admin: 03/28/21 11:46 Dose: Not Given Documented by: Insulin Glargine (Insulin Glargine 300 Unit/3 Ml Pen) 20 unit SUBQ QPM KEYA Levothyroxine Sodium (Levothyroxine 112 Mcg Tablet) 112 mcg PO QDAC [facility] Last Admin: 03/28/21 05:58 Dose: 112 mcg Documented by: Levothyroxine Sodium (Levothyroxine 25 Mcg Tablet) 25 mcg PO QDAC [facility] Last Admin: 03/28/21 05:58 Dose: 25 mcg Documented by: Losartan Potassium (Losartan 50 Mg Tablet) 50 mg PO DAILY [facility] Last Admin: 03/28/21 09:21 Dose: 50 mg Documented by: Metoprolol Tartrate (Metoprolol Tartrate 50 Mg Tablet) 50 mg PO BID [facility] Last Admin: 03/28/21 09:21 Dose: 50 mg Documented by: Ondansetron HCl (Ondansetron 4 Mg/2 Ml Vial) 4 mg IVP Q6HR PRN PRN Reason: Nausea / Vomiting Ondansetron HCl (Ondansetron Odt 4 Mg Tablet) 4 mg TL Q6HR PRN PRN Reason: Nausea / Vomiting Sodium Chloride (Sodium Chloride Flush 0.9% 10 Ml Syringe) 10 ml IVP PRN PRN PRN Reason: NEEDED PER PROVIDER ORDERS Last Admin: 03/26/21 13:23 Dose: 10 ml Documented by: Sodium Chloride (Sodium Chloride Flush 0.9% 10 Ml Syringe) 10 ml IVP 0100,0900,1700 [facility] Last Admin: 03/28/21 09:26 Dose: 10 ml Documented by: Albuterol Sulfate [Proair Digihaler] 90 mcg IH PRN PRN 03/25/21 Empagliflozin [Jardiance] 1 tab PO DAILY 03/25/21 Furosemide [Lasix] 40 mg PO DAILY 03/25/21 Glipizide [Glipizide Xl] 5 mg PO BID 03/25/21 Levothyroxine Sodium [Synthroid] 1 tab PO DAILY 03/25/21 Losartan Potassium 50 mg PO DAILY 03/25/21 Metformin HCl [Metformin ER Gastric] 500 mg PO BID 03/25/21 Potassium Chloride [Klor-Con 10] 10 meq PO DAILY 03/25/21 Objective - Vital Signs/Intake & Output Reviewed Vital Signs: Yes Vital Signs: Vital Signs x48h Temp Pulse Pulse Resp BP Pulse Ox 03/28/21 06:18 116 H 20 03/28/21 05:14 36.7 C 122 H 20 118/77 92 03/28/21 00:28 37.5 C 87 18 129/61 93 Intake & Output: Intake & Output 03/25/21 03/26/21 03/27/21 03/28/21 23:59 23:59 23:59 23:59 Intake Total 337 1237 1477 900 Output Total 950 2200 2200 1500 [facility] -[phone] - Objective General Appearance: positive: No acute distress, Alert Eyes Bilateral: positive: Normal inspection, Conjunctivae nml ENT: positive: ENT inspection nml, Other (Nasal cannula in place.) Neck: positive: Nml inspection Respiratory: positive: No respiratory distress, Other (Diminished bilaterally.). negative: Wheezes, Rales Cardiovascular: positive: Regular rate & rhythm. negative: Tachycardia, Systolic murmur Skin: positive: Warm, Dry, Other (There is a 2 x 1 cm ulceration of the medial aspect of the left lower extremity superior to the ankle. No purulent drainage. Scab noted.) Extremities: positive: Pedal edema (+2 pitting edema in bilateral lower ex tremities.) Neurologic/Psychiatric: negative: Disoriented to person, Disoriented to place - Lab Results Fish Bones: 03/28/21 05:16 03/28/21 05:16 Other Labs: Lab Results x24hrs 03/28/21 03/28/21 03/27/21 Range/Units 05:16 05:16 10:40 WBC 13.5 H (4.8-10.8) x10^3/uL RBC 4.61 (4.20-5.40) 10^6/uL Hgb 13.1 (12.0-16.0) g/dL Hct 44.2 (37.0-47.0) % MCV 95.9 (81.0-99.0) fL MCH 28.4 (27.0-31.0) pg MCHC 29.6 L (32.0-36.0) g/dL RDW 14.8 (12.0-15.0) % Plt Count 220 (130-450) 10^3/uL MPV 9.3 (7.9-10.8) fL Neut # (Auto) 11.0 H (1.5-6.6) 10^3/uL Lymph # (Auto) 1.6 (1.5-3.5) 10^3/uL [place] # (Auto) 0.8 (0.0-1.0) 10^3/uL Eos # (Auto) 0.0 (0.0-0.7) 10^3/uL Baso # (Auto) 0.0 (0.0-0.1) 10^3/uL Absolute Nucleated RBC 0.00 x10^3/uL Nucleated RBC % 0.0 /100WBC Bld Gas Analysis Time 1040 Sample Site LEFT RADIAL ABG pH 7.35 (7.35-7.45) ABG pCO2 69 H* (34-45) mmHg ABG pO2 67 L (80-100) mmHg ABG HCO3 37.7 H (22.0-26.0) mmol/L ABG Total CO2 39.8 H* (21.0-29.0) MMOL/L ABG O2 Saturation 93 L (94-98) % ABG Base Excess 9.4 H (-2.0-3.0) mmol/L Torin Test POSITIVE O2 Delivery Device NASAL CANNULA O2 Liters/Min 4.00 LPM Sodium 138 (135-145) mmol/L Potassium 3.4 L (3.5-5.0) mmol/L Chloride 92 L (101-111) mmol/L Carbon Dioxide 37 H (21-32) mmol/L Anion Gap 9.0 (6-13) BUN 26 H (6-20) mg/dL Creatinine 0.7 (0.4-1.0) mg/dL Estimated GFR (MDRD) 82 L (>89) Glucose 87 (70-100) mg/dL Calcium 9.3 (8.5-10.3) mg/dL ABX Reporting Has patient been on IV antibiotics over the past 48 hours?: No Assessment/Plan - Problem List (1) Acute respiratory failure with hypoxia and hypercapnia Impression: She has acute respiratory failure with hypoxia and chronic hypercapnic respiratory failure. Her acute hypoxic failure is likely due to heart failure in the setting of obesity hypoventilation syndrome. I suspect she is chronically hypoxic and will likely need supplemental oxygen at home. Her hypercapnia is chronic and due to her obesity hypoventilation syndrome. Her oxygen requirements are improved today and she is down to 1.5 L from 4 L of oxygen yesterday. Repeat chest x-ray yesterday was suggestive of mild CHF holes although this could also be due to poor inspiratory effort and the fact that she has cardiomegaly. Given the improvement in her hypoxia, we will continue to diurese her. Her BUN is slightly increased today so she may be close to her dry weight but we will give another dose of Lasix 40 mg IV. We will perform an exercise desaturation test prior to discharge. We will transition to oral diuretics tomorrow. She will most definitely need an outpatient sleep study she will likely need CPAP and potentially even BiPAP/trilogy. She will also need pulmonology follow-up on outpatient basis. Continue supplemental oxygen for goal saturation greater than 88%. (2) Acute diastolic heart failure Impression: Suspect that diastolic heart failure is likely contributing to her acute respiratory failure with hypoxia. Her echocardiogram revealed a preserved ejection fraction with indeterminate diastolic function. She does have lower extremity which is chronic from lymphedema but suspect is also a component of acute heart failure. Her chest x-ray suggested mild pulmonary vascular congestion. Her BNP is normal but this also could be falsely decreased due to her obesity. We will give another dose of IV Lasix today despite the slightly increased BUN. If her BUN continues to climb tomorrow then we will switch her to oral Lasix in preparation for discharge tomorrow or the following day. Continue with low-sodium diet. Strict I's and O's and daily weights. (3) Obesity hypoventilation syndrome Impression: She most definitely has obesity hypoventilation syndrome as evidenced by her chronic hypercapnic respiratory failure is likely contributing to her hypoxia as well. She will need a sleep study on outpatient basis and will likely need submental oxygen at home. She will ultimately need CPAP or BiPAP at home and a pulmonology evaluation. (4) Paroxysmal atrial fibrillation Impression: She has been in and out of atrial fibrillation at times which is a new diagnosis for her. We have started her on metoprolol and she is now in a sinus rhythm once again. We discussed anticoagulation and the need for it given the increased risk of stroke associated with atrial fibrillation. We discussed that she is not a candidate for Eliquis or Xarelto given her BMI. We discussed that the best option would be warfarin/Coumadin but she prefers to avoid that medication due to or stories she has heard in the past. I did educate her on the risks of anticoagulation with Coumadin but she still does not want to use the medication. She is agreeable to aspirin and so we will start her on aspirin 325 mg daily. (5) Ulcer of left lower extremity Impression: The wound culture grew Pseudomonas, Klebsiella, Enterococcus and Raoultella. These are all sensitive to ciprofloxacin. She was started on Keflex yesterday but we will switch her to ciprofloxacin for a total of 5 days of treatment. 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 Her blood glucose is better controlled since discontinuing the steroids. I have decreased her Lantus to 20 units in the evening. I have also decrease her NovoLog to 5 units with meals. We will continue to monitor her blood glucose and adjust her insulin as needed. 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 We will monitor this as we add metoprolol. (8) Hypothyroidism Impression: Continue Synthroid.
[2021-03-28] MEDS ORDERED: POTASSIUM CHLORIDE 20 MEQ TABLET PO ONE (08:08)
[2021-03-28] MEDS ORDERED: FUROSEMIDE 40 MG/4 ML VIAL IVP SCH (09:00)
[2021-03-28] MEDS: INSULIN ASPART 300 UNIT/3 ML PEN SUBQ SCH ×7 (09:20→20:10)
[2021-03-28] MEDS: LOSARTAN 50 MG TABLET PO SCH (09:21)
[2021-03-28] MEDS: METOPROLOL TARTRATE 50 MG TABLET PO SCH ×2 (09:21→20:08)
[2021-03-28] MEDS: ENOXAPARIN 40 MG/0.4 ML SYRINGE SUBQ SCH (09:22)
[2021-03-28] MEDS: CIPROFLOXACIN 250 MG TABLET PO SCH (20:08)
[2021-03-28] MEDS: INSULIN GLARGINE 300 UNIT/3 ML PEN SUBQ SCH (20:10)
[2021-03-29] MEDS: SODIUM CHLORIDE FLUSH 0.9% 10 ML SYRINGE IVP SCH ×3 (00:20→17:00)
[2021-03-29 05:38] LABS: BASOPHILS % (AUTO) 0.3 %; EOSINOPHILS # (AUTO) 0.2 10^3/uL (0.0-0.7); EOSINOPHILS % (AUTO) 2.1 %; HCT - HEMATOCRIT 42.5 % (37.0-47.0); HGB - HEMOGLOBIN 12.5 g/dL (12.0-16.0); LYMPHOCYTES # (AUTO) 1.2 10^3/uL (1.5-3.5); LYMPHOCYTES % (AUTO) 17.4 %; MEAN CORPUSCULAR HEMOGLOBIN 28.9 pg (27.0-31.0); MEAN CORPUSCULAR HGB CONC 29.4 g/dL (32.0-36.0); MEAN CORPUSCULAR VOLUME 98.2 fL (81.0-99.0); MEAN PLATELET VOLUME 9.7 fL (7.9-10.8); MONOCYTES # (AUTO) 0.7 10^3/uL (0.0-1.0); MONOCYTES % (AUTO) 10.3 %; NEUTROPHILS % (AUTO) 69.5 %; PLT - PLATELET COUNT 201 10^3/uL (130-450); RED BLOOD COUNT 4.33 10^6/uL (4.20-5.40); WHITE BLOOD COUNT 7.1 x10^3/uL (4.8-10.8)
[2021-03-29 05:50] LABS: CALCIUM 8.7 mg/dL (8.5-10.3); CREATININE 0.7 mg/dL (0.4-1.0); POTASSIUM 3.5 mmol/L (3.5-5.0)
[2021-03-29] MEDS: LEVOTHYROXINE 25 MCG TABLET PO SCH (07:03)
[2021-03-29] MEDS: LEVOTHYROXINE 112 MCG TABLET PO SCH (07:03)
[2021-03-29] MEDS: IPRATROPIUM/ALBUTEROL 3 ML NEB INH SCH ×4 (07:38→21:09)
[2021-03-29] MEDS: BUDESONIDE 0.5 MG/2 ML NEB INH SCH ×2 (07:39→21:09)
--- NOTE | 2021-03-29 07:40 | PROVIDER PROGRESS NOTE ---
Subjective - Prog Note Date Prog Note Date: 03/29/21 - Subjective Subjective: She feels like her breathing has improved quite a bit. She is able to walk a little bit further each day. She still feels short of breath with ambulation but this is improved. She is happy her lower extremity edema is improving. She is meeting with spirometry every hour and she is able to increase her volume to a liter now. Current Medications - Current Medications Current Medications: Active Medications Acetaminophen (Acetaminophen 325 Mg Tablet) 650 mg PO Q4HR PRN PRN Reason: Pain 1 to 4 Albuterol (Albuterol Neb 2.5 Mg/3 Ml) 2.5 mg INH RTQ4H PRN PRN Reason: Wheezing Last Admin: 03/27/21 00:15 Dose: 2.5 mg Documented by: Albuterol/Ipratropium (Ipratropium/Albuterol 3 Ml Neb) 3 ml INH RTQID KEYA Last Admin: 03/29/21 07:38 Dose: 3 ml Documented by: Aspirin (Aspirin 325 Mg Tablet) 325 mg PO DAILYWM [facility] Last Admin: 03/29/21 08:14 Dose: 325 mg Documented by: Budesonide (Budesonide 0.5 Mg/2 Ml Neb) 0.5 mg INH RTBID KEYA Last Admin: 03/29/21 07:39 Dose: 0.5 mg Documented by: Ciprofloxacin (Ciprofloxacin 250 Mg Tablet) 500 mg PO BID [facility] Stop: 04/02/21 20:59 Last Admin: 03/29/21 08:19 Dose: 500 mg Documented by: Enoxaparin Sodium (Enoxaparin 40 Mg/0.4 Ml Syringe) 40 mg SUBQ DAILY [facility] Last Admin: 03/29/21 08:19 Dose: 40 mg Documented by: Furosemide (Furosemide 40 Mg/4 Ml Vial) 40 mg IVP DAILY [facility] Last Admin: 03/29/21 08:19 Dose: 40 mg Documented by: Insulin Aspart (Insulin Aspart 300 Unit/3 Ml Pen) 2 - 10 unit SUBQ 0800,1200,1700,2100 [facility]; Protocol Last Admin: 03/29/21 08:21 Dose: Not Given Documented by: Insulin Aspart (Insulin Aspart 300 Unit/3 Ml Pen) 5 unit SUBQ TIDWM [facility] Last Admin: 03/29/21 08:15 Dose: 5 unit Documented by: Insulin Glargine (Insulin Glargine 300 Unit/3 Ml Pen) 20 unit SUBQ QPM [facility] Last Admin: 03/28/21 20:10 Dose: 20 unit Documented by: Levothyroxine Sodium (Levothyroxine 112 Mcg Tablet) 112 mcg PO QDAC [facility] Last Admin: 03/29/21 07:03 Dose: 112 mcg Documented by: Levothyroxine Sodium (Levothyroxine 25 Mcg Tablet) 25 mcg PO QDAC [facility] Last Admin: 03/29/21 07:03 Dose: 25 mcg Documented by: Losartan Potassium (Losartan 50 Mg Tablet) 50 mg PO DAILY [facility] Last Admin: 03/29/21 08:18 Dose: 50 mg Documented by: Metoprolol Tartrate (Metoprolol Tartrate 50 Mg Tablet) 50 mg PO BID [facility] Last Admin: 03/29/21 08:17 Dose: 50 mg Documented by: Ondansetron HCl (Ondansetron 4 Mg/2 Ml Vial) 4 mg IVP Q6HR PRN PRN Reason: Nausea / Vomiting Ondansetron HCl (Ondansetron Odt 4 Mg Tablet) 4 mg TL Q6HR PRN PRN Reason: Nausea / Vomiting Sodium Chloride (Sodium Chloride Flush 0.9% 10 Ml Syringe) 10 ml IVP PRN PRN PRN Reason: NEEDED PER PROVIDER ORDERS Last Admin: 03/26/21 13:23 Dose: 10 ml Documented by: Sodium Chloride (Sodium Chloride Flush 0.9% 10 Ml Syringe) 10 ml IVP 0100,0900,1700 [facility] Last Admin: 03/29/21 08:20 Dose: 10 ml Documented by: Albuterol Sulfate [Proair Digihaler] 90 mcg IH PRN PRN 03/25/21 Empagliflozin [Jardiance] 1 tab PO DAILY 03/25/21 Furosemide [Lasix] 40 mg PO DAILY 03/25/21 Glipizide [Glipizide Xl] 5 mg PO BID 03/25/21 Levothyroxine Sodium [Synthroid] 1 tab PO DAILY 03/25/21 Losartan Potassium 50 mg PO DAILY 03/25/21 Metformin HCl [Metformin ER Gastric] 500 mg PO BID 03/25/21 Potassium Chloride [Klor-Con 10] 10 meq PO DAILY 03/25/21 Objective - Vital Signs/Intake & Output Reviewed Vital Signs: Yes Vital Signs: Vital Signs x48h Temp Pulse Resp BP Pulse Ox 03/29/21 02:59 36.7 C 77 23 122/55 L 92 Intake & Output: Intake & Output 03/26/21 03/27/21 03/28/21 03/29/21 23:59 23:59 23:59 23:59 Intake Total 1237 1477 1930 300 Output Total 2200 2200 2950 600 [facility] -[phone] - Objective General Appearance: positive: No acute distress, Alert Eyes Bilateral: positive: Normal inspection, Conjunctivae nml ENT: positive: ENT inspection nml Neck: positive: Nml inspection Respiratory: positive: No respiratory distress, Other (Diminished bilaterally.). negative: Wheezes, Rales Cardiovascular: positive: Regular rate & rhythm. negative: Tachycardia, Systolic murmur Skin: positive: Warm, Dry, Other (There is a 2 x 1 cm ulceration of the medial aspect of the left lower extremity superior to the ankle. No purulent drainage. Scab noted.) Extremities: positive: Pedal edema (+1 to +2 pitting edema in bilateral lower extremities.) Neurologic/Psychiatric: negative: Disoriented to person, Disoriented to place - Lab Results Fish Bones: 03/29/21 05:16 03/29/21 05:16 Other Labs: Lab Results x24hrs 03/29/21 03/29/21 Range/Units 05:16 05:16 WBC 7.1 (4.8-10.8) x10^3/uL RBC 4.33 (4.20-5.40) 10^6/uL Hgb 12.5 (12.0-16.0) g/dL Hct 42.5 (37.0-47.0) % MCV 98.2 (81.0-99.0) fL MCH 28.9 (27.0-31.0) pg MCHC 29.4 L (32.0-36.0) g/dL RDW 15.0 (12.0-15.0) % Plt Count 201 (130-450) 10^3/uL MPV 9.7 (7.9-10.8) fL Neut # (Auto) 5.0 (1.5-6.6) 10^3/uL Lymph # (Auto) 1.2 L (1.5-3.5) 10^3/uL [place] # (Auto) 0.7 (0.0-1.0) 10^3/uL Eos # (Auto) 0.2 (0.0-0.7) 10^3/uL Baso # (Auto) 0.0 (0.0-0.1) 10^3/uL Absolute Nucleated RBC 0.00 x10^3/uL Nucleated RBC % 0.0 /100WBC Sodium 139 (135-145) mmol/L Potassium 3.5 (3.5-5.0) mmol/L Chloride 95 L (101-111) mmol/L Carbon Dioxide 37 H (21-32) mmol/L Anion Gap 7.0 (6-13) BUN 23 H (6-20) mg/dL Creatinine 0.7 (0.4-1.0) mg/dL Estimated GFR (MDRD) 82 L (>89) Glucose 139 H (70-100) mg/dL Calcium 8.7 (8.5-10.3) mg/dL ABX Reporting Has patient been on IV antibiotics over the past 48 hours?: No Assessment/Plan - Problem List (1) Acute respiratory failure with hypoxia and hypercapnia Impression: She has acute respiratory failure with hypoxia and chronic hypercapnic respiratory failure. Her acute hypoxic failure is likely due to heart failure in the setting of obesity hypoventilation syndrome. I suspect she is chronically hypoxic and will likely need supplemental oxygen at home. Her hypercapnia is chronic and due to her obesity hypoventilation syndrome. Her oxygen requirements seem to have stabilized around 1.5 to 2 L of oxygen. This is improved from her peak requirements of 4 L. She responded well to diuresis and I suspect acute this like heart failure is contributing to her hypoxia but she also will need supplemental oxygen at home as mentioned above. We will continue to give her IV Lasix until we see an evidence of her being close to her dry weight which may be manifested by an elevated BUN or creatinine. We will continue Lasix 40 mg IV daily until this is evident. We will then switch her to oral diuretics when she is close to her dry weight in preparation for discharge. She will need an outpatient sleep study and will likely need CPAP or potentially even BiPAP/trilogy. She will also need a pulmonology follow-up on outpatient basis. She will need an exercise desaturation test prior to discharge. (2) Acute diastolic heart failure Impression: The concern is for acute diastolic heart failure as the cause of her respiratory failure with hypoxia. Her chest x-ray suggested mild pulmonary vascular congestion. Her echocardiogram revealed a preserved ejection fraction with indeterminate diastolic function. Although her BNP is normal, this could be falsely decreased due to her obesity. Clinically she appears to have heart failure given her lower extremity edema and she has responded well to diuresis. She has had a negative fluid balance each day since admission and her oxygena tion has improved. Yesterday her creatinine and BUN had increased slightly but today it is stable so I still think we have some room to work with and so we will continue to diurese her with IV Lasix. Suspect she will need another 24 to 48 hours of IV Lasix before switching her to p.o. and then discharging her home. Continue with strict I's and O's and daily weights. She may benefit from CHF classes on discharge. (3) Obesity hypoventilation syndrome Impression: She most definitely has obesity hypoventilation syndrome as evidenced by her chronic hypercapnic respiratory failure is likely contributing to her hypoxia as well. She will need a sleep study on outpatient basis and will likely need supplemental oxygen at home. She will ultimately need CPAP or BiPAP at home and a pulmonology evaluation. (4) Paroxysmal atrial fibrillation Impression: She is rate controlled and currently in a sinus rhythm. We have started her on metoprolol and full dose aspirin given she declined anticoagulation with Coumadin and she is not a candidate for Eliquis or Xarelto given her BMI. We will continue to monitor. (5) Ulcer of left lower extremity Impression: The wound culture grew Pseudomonas, Klebsiella, Enterococcus and Raoultella. These are all sensitive to ciprofloxacin. We started her on ciprofloxacin yesterday evening and she will need a total of 5 days of treatment. 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 Her blood glucose has improved since discontinuing steroids and she is doing well on the current regimen of 20 units of Lantus and 5 units of NovoLog with meals. She is on multiple oral hypoglycemic agents at home and we can consider discharging her on insulin and she can follow-up with her primary care provider. Continue carb controlled diet. 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 (8) Hypothyroidism Impression: Continue Synthroid.
[2021-03-29] MEDS: ASPIRIN 325 MG TABLET PO SCH (08:14)
[2021-03-29] MEDS: INSULIN ASPART 300 UNIT/3 ML PEN SUBQ SCH ×7 (08:15→21:24)
[2021-03-29] MEDS: METOPROLOL TARTRATE 50 MG TABLET PO SCH ×2 (08:17→21:18)
[2021-03-29] MEDS: LOSARTAN 50 MG TABLET PO SCH (08:18)
[2021-03-29] MEDS: CIPROFLOXACIN 250 MG TABLET PO SCH ×2 (08:19→21:18)
[2021-03-29] MEDS: ENOXAPARIN 40 MG/0.4 ML SYRINGE SUBQ SCH (08:19)
[2021-03-29] MEDS: FUROSEMIDE 40 MG/4 ML VIAL IVP SCH (08:19)
[2021-03-29] MEDS ORDERED: FUROSEMIDE 40 MG TABLET PO SCH (09:00)
[2021-03-29] MEDS: SACCHAROMYCES BOULARDII 250 MG CAPSULE PO SCH (17:00)
[2021-03-29] MEDS: INSULIN GLARGINE 300 UNIT/3 ML PEN SUBQ SCH (21:25)
[2021-03-30] MEDS: SODIUM CHLORIDE FLUSH 0.9% 10 ML SYRINGE IVP SCH ×3 (00:48→16:06)
[2021-03-30 06:07] LABS: BASOPHILS % (AUTO) 0.3 %; EOSINOPHILS # (AUTO) 0.2 10^3/uL (0.0-0.7); EOSINOPHILS % (AUTO) 3.8 %; HCT - HEMATOCRIT 43.2 % (37.0-47.0); HGB - HEMOGLOBIN 12.9 g/dL (12.0-16.0); LYMPHOCYTES # (AUTO) 1.3 10^3/uL (1.5-3.5); LYMPHOCYTES % (AUTO) 20.8 %; MEAN CORPUSCULAR HEMOGLOBIN 29.1 pg (27.0-31.0); MEAN CORPUSCULAR HGB CONC 29.9 g/dL (32.0-36.0); MEAN CORPUSCULAR VOLUME 97.5 fL (81.0-99.0); MEAN PLATELET VOLUME 9.5 fL (7.9-10.8); MONOCYTES # (AUTO) 0.5 10^3/uL (0.0-1.0); MONOCYTES % (AUTO) 8.7 %; NEUTROPHILS % (AUTO) 65.9 %; PLT - PLATELET COUNT 200 10^3/uL (130-450); RED BLOOD COUNT 4.43 10^6/uL (4.20-5.40); RED CELL DISTRIBUTION WIDTH 14.6 % (12.0-15.0); WHITE BLOOD COUNT 6.1 x10^3/uL (4.8-10.8)
[2021-03-30] MEDS: LEVOTHYROXINE 112 MCG TABLET PO SCH (06:08)
[2021-03-30] MEDS: LEVOTHYROXINE 25 MCG TABLET PO SCH (06:08)
[2021-03-30 06:14] LABS: CALCIUM 8.8 mg/dL (8.5-10.3); CREATININE 0.6 mg/dL (0.4-1.0); POTASSIUM 3.4 mmol/L (3.5-5.0)
[2021-03-30] MEDS: IPRATROPIUM/ALBUTEROL 3 ML NEB INH SCH ×4 (07:22→21:43)
[2021-03-30] MEDS: BUDESONIDE 0.5 MG/2 ML NEB INH SCH ×2 (07:22→21:43)
[2021-03-30] MEDS: CIPROFLOXACIN 250 MG TABLET PO SCH ×2 (08:06→20:39)
[2021-03-30] MEDS: SACCHAROMYCES BOULARDII 250 MG CAPSULE PO SCH ×2 (08:06→16:06)
[2021-03-30] MEDS: ASPIRIN 325 MG TABLET PO SCH (08:06)
[2021-03-30] MEDS: METOPROLOL TARTRATE 50 MG TABLET PO SCH ×2 (08:07→20:39)
[2021-03-30] MEDS: FUROSEMIDE 40 MG/4 ML VIAL IVP SCH (08:07)
[2021-03-30] MEDS: POTASSIUM CHLORIDE 20 MEQ TABLET PO SCH (08:07)
[2021-03-30] MEDS: INSULIN ASPART 300 UNIT/3 ML PEN SUBQ SCH ×7 (08:07→20:51)
[2021-03-30] MEDS: LOSARTAN 50 MG TABLET PO SCH (08:07)
[2021-03-30] MEDS: ENOXAPARIN 40 MG/0.4 ML SYRINGE SUBQ SCH (08:07)
[2021-03-30] MEDS ORDERED: CARBOXYMETHYLCELLULOSE OPHTH DROPS EACHEYE PRN (14:04)
--- NOTE | 2021-03-30 19:26 | PROVIDER PROGRESS NOTE ---
Assessment/Plan - Problem List (1) Acute respiratory failure with hypoxia and hypercapnia Assessment/Plan: Multifactorial. Secondary to CHF, obesity hypoventilation. She is on supplemental oxygen via nasal cannula about 1.5 to 2 L. She is on Lasix 40 mg IV daily. Plans to switch to p.o. upon discharge. And oxygen/exercise desaturation study planned for tomorrow 03/31/2021. Patient would need to foll ow-up with pulmonary in the outpatient setting. She would need sleep study and likely CPAP or BiPAP. (2) Acute diastolic heart failure Assessment/Plan: Continue Lasix 40 mg IV daily. Patient's lymphedema is improved, compared to time of admission. Continue strict I's and O's. Metoprolol tartrate 50 mg p.o. twice daily. Losartan 50 mg p.o. daily. EF on 2D echo was 65 to 70%. Diastolic function is indeterminate. (3) Diabetes Qualifiers: Diabetes mellitus type: type 2 Diabetes mellitus long term acute care registered nurse insulin use: without long term acute care registered nurse use Diabetes mellitus complication status: with hyperglycemia Qualified Code(s): E11.65 - Type 2 diabetes mellitus with hyperglycemia Assessment/Plan: He HgA1c was 9.5. Lantus 20 units subcu every afternoon. Regular insulin 5 units subcu 3 times daily with meals. Sliding scale insulin. Accu-Cheks before every meal and at bedtime. (4) HTN (hypertension) Assessment/Plan: On metoprolol, losartan and Lasix. (5) Hypothyroidism Assessment/Plan: On levothyroxine 137 mcg p.o. daily AC (6) Obesity hypoventilation syndrome Assessment/Plan: Sleep study in the outpatient setting. Oxygen desaturation study ordered for the morning. Patient would likely need supplemental oxygen at home. She will need pulmonology consult and will ultimately need CPAP or BiPAP. (7) Paroxysmal atrial fibrillation Assessment/Plan: Currently rate controlled. On metoprolol and aspirin. She declined anticoagulation with Coumadin and is not a candidate for Eliquis or Xarelto due to BMI. 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 These are all sensitive to ciprofloxacin. She was started on ciprofloxacin 03/28/21 evening and she will need a total of 5 days of treatment to end 04/02/21. - Current Meds Current Meds: Current Medications Generic Name Dose Route Start Last Admin Trade Name Freq PRN Reason Stop Dose Admin Albuterol 2.5 mg 03/25/21 17:42 03/27/21 00:15 Albuterol Neb 2.5 Mg/3 Ml INH 2.5 mg RTQ4H PRN Administration Wheezing Albuterol/Ipratropium 3 ml 03/25/21 19:00 03/30/21 18:12 Ipratropium/Albuterol 3 Ml Neb INH Not Given RTQID KEYA Aspirin 325 mg 03/29/21 08:00 03/30/21 08:06 Aspirin 325 Mg Tablet PO 325 mg DAILYWM KEYA Administration Budesonide 0.5 mg 03/25/21 19:00 03/30/21 07:22 Budesonide 0.5 Mg/2 Ml Neb INH 0.5 mg RTBID KEYA Administration Ciprofloxacin 500 mg 03/28/21 21:00 03/30/21 08:06 Ciprofloxacin 250 Mg Tablet PO 04/02/21 20:59 500 mg BID KEYA Administration Enoxaparin Sodium 40 mg 03/26/21 09:00 03/30/21 08:07 Enoxaparin 40 Mg/0.4 Ml Syringe SUBQ 40 mg DAILY KEYA Administration Furosemide 40 mg 03/29/21 09:00 03/30/21 08:07 Furosemide 40 Mg/4 Ml Vial IVP 40 mg DAILY KEYA Administration Insulin Aspart 2 - 10 unit 03/27/21 08:00 03/30/21 16:52 Insulin Aspart 300 Unit/3 Ml Pen SUBQ 2 unit 0800,1200,1700,2100 KEYA Administration Protocol Insulin Aspart 5 unit 03/28/21 17:00 03/30/21 16:53 Insulin Aspart 300 Unit/3 Ml Pen SUBQ 5 unit TIDWM KEYA Administration Insulin Glargine 20 unit 03/28/21 21:00 03/29/21 21:25 Insulin Glargine 300 Unit/3 Ml Pen SUBQ 20 unit QPM KEYA Administration Levothyroxine Sodium 112 mcg 03/26/21 07:00 03/30/21 06:08 Levothyroxine 112 Mcg Tablet PO 112 mcg QDAC KEYA Administration Levothyroxine Sodium 25 mcg 03/26/21 07:00 03/30/21 06:08 Levothyroxine 25 Mcg Tablet PO 25 mcg QDAC KEYA Administration Losartan Potassium 50 mg 03/25/21 18:30 03/30/21 08:07 Losartan 50 Mg Tablet PO 50 mg DAILY KEYA Administration Metoprolol Tartrate 50 mg 03/28/21 09:00 03/30/21 08:07 Metoprolol Tartrate 50 Mg Tablet PO 50 mg BID KEYA Administration Potassium Chloride 20 meq 03/30/21 08:00 03/30/21 08:07 Potassium Chloride 20 Meq Tablet PO 20 meq DAILYWM KEYA Administration Saccharomyces Boulardii 250 mg 03/29/21 17:00 03/30/21 16:06 Saccharomyces Boulardii 250 Mg Capsule PO 250 mg BIDWM KEYA Administration Sodium Chloride 10 ml 03/25/21 17:38 03/26/21 13:23 Sodium Chloride Flush 0.9% 10 Ml Syringe IVP 10 ml PRN PRN Administration NEEDED PER PROVIDER ORDERS Sodium Chloride 10 ml 03/26/21 01:00 03/30/21 16:06 Sodium Chloride Flush 0.9% 10 Ml Syringe IVP 10 ml 0100,0900,1700 KEYA Administration - Lab Result Fish Bone Diagrams: 03/30/21 05:41 03/30/21 05:41 Subjective - Subjective Patient Reports: Other (Patient reports she continues to feel better daily. She had some mild conversational dyspnea. Lymphedema appreciable in lower extremities but she reports significant improvement. Wound on the medial aspect of her left foot is draining serosanguineous fluid. She denies any other complaints.) Objective Vital Signs: Vital Signs - 24 hr 03/29/21 03/29/21 03/29/21 20:49 20:54 21:18 Temperature 37.3 C Heart Rate 71 Heart Rate [ 74 Brachial] Respiratory 26 H 20 Rate Blood Pressure 132/68 H Blood Pressure 132/68 H [Left Brachial artery] Blood Pressure [Left Radial artery] O2 Saturation 92 03/29/21 03/30/21 03/30/21 23:58 05:00 06:10 Temperature 37.1 C 36.6 C Heart Rate Heart Rate [ 64 87 Brachial] Respiratory 16 18 Rate Blood Pressure Blood Pressure 115/53 L 117/56 L [Left Brachial artery] Blood Pressure [Left Radial artery] O2 Saturation 92 91 L 92 03/30/21 03/30/21 03/30/21 07:25 07:59 11:45 Temperature 37.1 C Heart Rate 78 66 Heart Rate [ 82 Brachial] Respiratory 12 20 18 Rate Blood Pressure Blood Pressure [Left Brachial artery] Blood Pressure 122/52 L [Left Radial artery] O2 Saturation 94 03/30/21 03/30/21 11:46 16:14 Temperature 36.4 C L 36.8 C Heart Rate Heart Rate [ 69 70 Brachial] Respiratory 19 18 Rate Blood Pressure Blood Pressure [Left Brachial artery] Blood Pressure 124/61 118/59 L [Left Radial artery] O2 Saturation 92 94 Oxygen O2 Source Nasal cannula I&O (Last 24 Hrs): Intake and Output Totals x24h 03/28/21 03/29/21 03/30/21 23:59 23:59 23:59 Intake Total 1930 1830 1270 Output Total 2950 2100 1750 Balance -1020 270 -480 General: Alert, Oriented x3, Mild distress (conversational dyspnea) HEENT: PERRLA, EOMI Neck: No JVD Neuro: Alert, Non Focal, Oriented Times 3 Cardiovascular: Regular rate, Normal S1, Normal S2, No murmurs Respiratory: Other (mild crackles) Abdomen: Normal bowel sounds, Soft, No tenderness Extremities: Other (chronic lymphedema,) Comments/Notes: wound on medial aspect of left foot draining serosanguinous fluid - Results Results: Laboratory Results WBC 6.1 x10^3/uL (4.8-10.8) 03/30/21 05:41 RBC 4.43 10^6/uL (4.20-5.40) 03/30/21 05:41 Hgb 12.9 g/dL (12.0-16.0) 03/30/21 05:41 Hct 43.2 % (37.0-47.0) 03/30/21 05:41 MCV 97.5 fL (81.0-99.0) 03/30/21 05:41 MCH 29.1 pg (27.0-31.0) 03/30/21 05:41 MCHC 29.9 g/dL (32.0-36.0) L 03/30/21 05:41 RDW 14.6 % (12.0-15.0) 03/30/21 05:41 Plt Count 200 10^3/uL (130-450) 03/30/21 05:41 MPV 9.5 fL (7.9-10.8) 03/30/21 05:41 Neut # (Auto) 4.0 10^3/uL (1.5-6.6) 03/30/21 05:41 Lymph # (Auto) 1.3 10^3/uL (1.5-3.5) L 03/30/21 05:41 Carter # (Auto) 0.5 10^3/uL (0.0-1.0) 03/30/21 05:41 Eos # (Auto) 0.2 10^3/uL (0.0-0.7) 03/30/21 05:41 Baso # (Auto) 0.0 10^3/uL (0.0-0.1) 03/30/21 05:41 Absolute Nucleated RBC 0.00 x10^3/uL 03/30/21 05:41 Total Counted 100 03/27/21 05:00 Band Neuts % (Manual) 0 % (0-10) 03/27/21 05:00 Abnorm Lymph % (Manual) 0 % 03/27/21 05:00 Nucleated RBC % 0.0 /100WBC 03/30/21 05:41 Neutrophils # (Manual) 10.5 10^3/uL (1.5-6.6) H 03/27/21 05:00 Lymphocytes # (Manual) 0.3 10^3/uL (1.5-3.5) L 03/27/21 05:00 Monocytes # (Manual) 0.2 10^3/uL (0.0-1.0) 03/27/21 05:00 Eosinophils # (Manual) 0.0 10^3/uL (0-0.7) 03/27/21 05:00 Basophils # (Manual) 0.0 10^3/uL (0-0.1) 03/27/21 05:00 Differential Comment MANUAL DIFFERENTIAL 03/27/21 05:00 WBC Morphology NORMAL APPEARANCE (NORMAL) 03/27/21 05:00 Platelet Estimate NORMAL (130-450,000) (NORMAL) 03/27/21 05:00 Platelet Morphology NORMAL APPEARANCE (NORMAL) 03/27/21 05:00 RBC Morph Micro Appear NORMAL APPEARANCE (NORMAL) 03/27/21 05:00 Bld Gas Analysis Time 1040 03/27/21 10:40 Sample Site LEFT RADIAL 03/27/21 10:40 ABG pH 7.35 (7.35-7.45) 03/27/21 10:40 ABG pCO2 69 mmHg (34-45) H* 03/27/21 10:40 ABG pO2 67 mmHg (80-100) L 03/27/21 10:40 ABG HCO3 37.7 mmol/L (22.0-26.0) H 03/27/21 10:40 ABG Total CO2 39.8 MMOL/L (21.0-29.0) H* 03/27/21 10:40 ABG O2 Saturation 93 % (94-98) L 03/27/21 10:40 ABG Base Excess 9.4 mmol/L (-2.0-3.0) H 03/27/21 10:40 Torin Test POSITIVE 03/27/21 10:40 O2 Delivery Device NASAL CANNULA 03/27/21 10:40 O2 Liters/Min 4.00 LPM 03/27/21 10:40 Sodium 140 mmol/L (135-145) 03/30/21 05:41 Potassium 3.4 mmol/L (3.5-5.0) L 03/30/21 05:41 Chloride 92 mmol/L (101-111) L 03/30/21 05:41 Carbon Dioxide 38 mmol/L (21-32) H 03/30/21 05:41 Anion Gap 10.0 (6-13) 03/30/21 05:41 BUN 17 mg/dL (6-20) 03/30/21 05:41 Creatinine 0.6 mg/dL (0.4-1.0) 03/30/21 05:41 Estimated GFR (MDRD) 98 (>89) 03/30/21 05:41 Glucose 202 mg/dL (70-100) H 03/30/21 05:41 POC Whole Bld Glucose 168 mg/dL (70 - 100) H 03/30/21 16:42 Estimat Average Glucose 226 mg/dL (70-100) H 03/26/21 04:48 Hemoglobin A1c % 9.5 % (4.27-6.07) H 03/26/21 04:48 Calcium 8.8 mg/dL (8.5-10.3) 03/30/21 05:41 Total Bilirubin 0.6 mg/dL (0.2-1.0) 03/25/21 14:24 AST 29 IU/L (10-42) 03/25/21 14:24 ALT 26 IU/L (10-60) 03/25/21 14:24 Alkaline Phosphatase 75 IU/L (42-121) 03/25/21 14:24 Troponin I High Sens 6.7 ng/L (2.3-14.8) 03/25/21 14:24 B-Natriuretic Peptide 89 pg/mL (5-100) 03/26/21 04:48 Total Protein 7.5 g/dL (6.7-8.2) 03/25/21 14:24 Albumin 3.9 g/dL (3.2-5.5) 03/25/21 14:24 Globulin 3.6 g/dL (2.1-4.2) 03/25/21 14:24 Albumin/Globulin Ratio 1.1 (1.0-2.2) 03/25/21 14:24 Lipase 22 U/L (22-51) 03/25/21 14:24 TSH 1.63 uIU/mL (0.34-5.60) 03/26/21 04:48 Nasal Adenovirus (PCR) NOT DETECTED 03/25/21 17:41 Nasal B. parapertussis DNA (PCR) NOT DETECTED 03/25/21 17:41 Nasal Coronavir 229E PCR NOT DETECTED 03/25/21 17:41 Nasal Coronavir HKU1 PCR NOT DETECTED 03/25/21 17:41 Nasal Coronavir NL63 PCR NOT DETECTED 03/25/21 17:41 Nasal Coronavir OC43 PCR NOT DETECTED 03/25/21 17:41 Nasal Enterovir/Rhinovir PCR NOT DETECTED 03/25/21 17:41 Nasal Influenza B PCR NOT DETECTED 03/25/21 17:41 Nasal Influenza A PCR NOT DETECTED 03/25/21 17:41 Nasal Parainfluen 1 PCR NOT DETECTED 03/25/21 17:41 Nasal Parainfluen 2 PCR NOT DETECTED 03/25/21 17:41 Nasal Parainfluen 3 PCR NOT DETECTED 03/25/21 17:41 Nasal Parainfluen 4 PCR NOT DETECTED 03/25/21 17:41 Nasal RSV (PCR) NOT DETECTED 03/25/21 17:41 Nasal B.pertussis DNA PCR NOT DETECTED 03/25/21 17:41 Nasal C.pneumoniae (PCR) NOT DETECTED 03/25/21 17:41 [place] Human Metapneumo PCR NOT DETECTED 03/25/21 17:41 Nasal M.pneumoniae (PCR) NOT DETECTED 03/25/21 17:41 Nasal SARS-CoV-2 (PCR) NOT DETECTED 03/25/21 17:41 Stl C. diff Tox B Gene NEGATIVE (NEGATIVE) 03/29/21 20:42 ABX Reporting Has patient been on IV antibiotics over the past 48 hours?: Yes
[2021-03-30] MEDS: INSULIN GLARGINE 300 UNIT/3 ML PEN SUBQ SCH (20:50)
[2021-03-31] MEDS: SODIUM CHLORIDE FLUSH 0.9% 10 ML SYRINGE IVP SCH ×2 (00:44→08:44)
[2021-03-31 06:08] LABS: BASOPHILS # (AUTO) 0.1 10^3/uL (0.0-0.1); BASOPHILS % (AUTO) 0.8 %; EOSINOPHILS # (AUTO) 0.4 10^3/uL (0.0-0.7); EOSINOPHILS % (AUTO) 6.1 %; HCT - HEMATOCRIT 43.4 % (37.0-47.0); HGB - HEMOGLOBIN 12.9 g/dL (12.0-16.0); LYMPHOCYTES # (AUTO) 1.7 10^3/uL (1.5-3.5); LYMPHOCYTES % (AUTO) 27.1 %; MEAN CORPUSCULAR HEMOGLOBIN 28.9 pg (27.0-31.0); MEAN CORPUSCULAR HGB CONC 29.7 g/dL (32.0-36.0); MEAN CORPUSCULAR VOLUME 97.1 fL (81.0-99.0); MEAN PLATELET VOLUME 9.8 fL (7.9-10.8); MONOCYTES # (AUTO) 0.6 10^3/uL (0.0-1.0); MONOCYTES % (AUTO) 9.2 %; NEUTROPHILS # (AUTO) 3.4 10^3/uL (1.5-6.6); PLT - PLATELET COUNT 208 10^3/uL (130-450); RED BLOOD COUNT 4.47 10^6/uL (4.20-5.40); RED CELL DISTRIBUTION WIDTH 14.6 % (12.0-15.0); WHITE BLOOD COUNT 6.1 x10^3/uL (4.8-10.8)
[2021-03-31] MEDS: LEVOTHYROXINE 25 MCG TABLET PO SCH (06:09)
[2021-03-31] MEDS: LEVOTHYROXINE 112 MCG TABLET PO SCH (06:09)
[2021-03-31 06:17] LABS: CALCIUM 8.8 mg/dL (8.5-10.3); CREATININE 0.5 mg/dL (0.4-1.0); POTASSIUM 3.6 mmol/L (3.5-5.0)
[2021-03-31] MEDS: IPRATROPIUM/ALBUTEROL 3 ML NEB INH SCH ×2 (07:25→11:00)
[2021-03-31] MEDS: BUDESONIDE 0.5 MG/2 ML NEB INH SCH (07:25)
[2021-03-31] MEDS: INSULIN ASPART 300 UNIT/3 ML PEN SUBQ SCH ×4 (07:57→11:41)
[2021-03-31] MEDS: POTASSIUM CHLORIDE 20 MEQ TABLET PO SCH (08:42)
[2021-03-31] MEDS: CIPROFLOXACIN 250 MG TABLET PO SCH (08:42)
[2021-03-31] MEDS: ASPIRIN 325 MG TABLET PO SCH (08:42)
[2021-03-31] MEDS: METOPROLOL TARTRATE 50 MG TABLET PO SCH (08:43)
[2021-03-31] MEDS: LOSARTAN 50 MG TABLET PO SCH (08:43)
[2021-03-31] MEDS: SACCHAROMYCES BOULARDII 250 MG CAPSULE PO SCH (08:43)
[2021-03-31] MEDS: ENOXAPARIN 40 MG/0.4 ML SYRINGE SUBQ SCH (08:44)
[2021-03-31] MEDS: FUROSEMIDE 40 MG/4 ML VIAL IVP SCH (08:44)
--- NOTE | 2021-03-31 10:45 | Discharge Plan ---
Discharge Plan Problem Reviewed?: Yes Disposition: Home, Self Care Condition: Stable Prescriptions: Fluticasone/Salmeterol [Advair 250-50 Diskus] 1 each IH BID #1 packet Ciprofloxacin [Cipro] 500 mg PO BID #10 tablet Aspirin EC [Ecotrin] 81 mg PO DAILY #30 tablet Saccharomyces Boulardii [Florastor] 250 mg PO BID #5 Potassium Chloride [K-Dur] 20 meq PO Q2D #15 tablet Insulin Glargine [Lantus Solostar] 10 unit SUBQ QPM #1 pe Tiotropium [place] [Spiriva Respimat] 4 gm IH BID #1 inhaler Metoprolol Succinate [Toprol Xl] 50 mg PO DAILY #30 tablet Diet: Diabetic Activity Restrictions: Activity as Tolerated Shower Restrictions: No Instruction Topics: Wound Care, Oxygen Home Use Health Concerns: You were admitted with a COPD exacerbation. The swelling of your legs created an open wound of the left inside ankle. This wound needs attention by your primary care provider, or referral to a surgeon then possible wound clinic visits. You were tested for needing oxygen after discharge, and you will now have an order for home oxygen use: Oxygen set at 1 L/min at rest and 2 L/min with any activity. Please see your primary care provider in the next 5 - 10 days, for hospital follow-up appointment. You can discuss having a sleep study and a Pulmonary referral and Surgery or Wound care referral with your doctor then. Please resume all your pre-hospital medications. There are also some new prescriptions which were electronically sent to your [facility] pharmacy (new Spiriva and Advair inhalers, several more days of antibiotics and probiotics, new Insulin pen, new Potassium, new Metoprolol and daily aspirin for your Afib). Plan of Treatment: As above. Care Goals: Improvement in symptoms and stabilization are the goals. Assessment: The patient understands and is agreeable with the plan. Additional Instructions or Follow Up instructions: If you have new or worsening symptoms, call your PCP for advice or come to the ER. Follow-Up Care: [facility] - Wound/Ostomy No Smoking: If you smoke, Please STOP! Call for help. Follow-up with: WESTLEY Scales [Provider Group]
--- NOTE | 2021-03-31 11:13 | DISCHARGE SUMMARY ---
Discharge Summary Admit Date: 03/25/21 Discharge Date: 03/31/21 Discharging Provider: Dr Mihaela Hart Primary Care Provider: WESTLEY Scales Condition at Discharge: Stable Discharge Disposition: 01 Home, Self Care - HPI History of Present Illness: From the admission H&P of Sae Shaw NP: This is a 71-year old white female with a past medical history significant for hypertension, asthma, diabetes, abdominal cancer, obesity, bilateral lower extremity lymphedema who presented to ER complaining of shortness of breath and bilaterally worsening edema. pt report she had increasing lower extremity swelling and shortness of breath over the last several weeks. she feels signifi cantly shortness of breath since yesterday with dry cough. On arrival in the ER she had cyanosis of the lips. She had O2 sat 85 % on room air with Increased work of breathing while at rest. CTA of the chest was done and showed no acute process, no PE, but with pulmonary hypertension and cardiomegaly, coronary artery disease. After the patient was treated with DuoNeb in the ER, patient oxygen saturation has improved. pt report she is not a cigarette smoker but she has received secondhand smoker, from her parents who both smoked and her , living with him for many years. pt is now so shortness of breath, she cannot finish a whole sentence, but she feels comfortable at the rest. She repo rted she has "lymphedema" of her both legs about 2 years ago. She did see specialist for lymphedema but has not much improved. There has been drainage of her left lower extremity with ulcer. Both legs show significant erythema, swelling, warmth. She denies fever, chill or chest pain. We discussed the care goal with patient; patient would like to have DNR. She reported she "has a DNR POLST form at home on the door of refrigerator". - HOSPITAL COURSE Hospital Course: (1) Acute respiratory failure with hypoxia and hypercapnia Multifactorial. Secondary to CHF, COPD, and suspected obesity hypoventilation. She was started on supplemental oxygen via nasal cannula. She was given Lasix 40 mg IV daily, switched to p.o. upon discharge. An oxygen/exercise desaturation study was done on the day of discharge. Patient may need to follow-up with Pulmonary in the outpatient setting. She would also need PFTs and a sleep study and likely CPAP or BiPAP. (2) COPD exacerbation Patient was short of breathing, desaturating at 85%, could not finish a whole sentence when she spoke, had cyanosis of the lips and had significantly diminished bilateral lung sounds on exam. She was started on Duoneb treatment, Solu-metro IV, prn albuterol q4h, scheduled pulmicort, and supplemental oxygen. An oxygen test/exercise desaturation study was done on the day of discharge: at rest on room air her O2 saturation was 86%, at rest on 1L oxygen per n.c. her O2 saturation was 93% then with just standing up, her O2 saturation dropped to 89% on 1L oxygen. On 2L, her O2 saturation improved to 94%, then with ambulation her O2 saturation dropped to 90% on 2L, but recovered to 93% in 30 sec. I am ordering Home Oxygen for this patient, set at 1L at rest and 2L with activity. (3) Acute diastolic heart failure An Echo was done and LVEF was 65 to 70%, Diastolic function was indeterminate (possibly abnormal). We continued her on Lasix 40 mg IV daily. Patient's (lymph)edema improved, compared to time of admission. She was also started on Metoprolol tartrate 50 mg p.o. twice daily and was on Losartan 50 mg p.o. daily. (4) Paroxysmal atrial fibrillation We noted that she had paroxysms of Afib. She was treated with metoprolol and aspirin. She declined anticoagulation with Coumadin and is not a candidate for Eliquis or Xarelto due to BMI. (5) Type 2 Diabetes mellitus with hyperglycemia Her A1c was 9.5. We ordered Lantus 20 units subcu everyday, Regular insulin 5 units subcu with meals, and ordered a Sliding scale insulin for Accu-Cheks results before every meal and at bedtime. (6) HTN (hypertension) BP was stable on metoprolol, losartan and Lasix. (7) Hypothyroidism She was on levothyroxine 137 mcg p.o. daily AC (8) Obesity hypoventilation syndrome Sleep study in the outpatient setting is strongly advised. She may need Pulmonology consult and may need CPAP or BiPAP. (9) Venous stasis ulcer Patient has history of lymphedema, both lower extremities have venous stasis. Left lower extremity has an intermittently draining ulcer of the medial ankle. We sent the drainage for wound culture, started empiric antibiotics, and did blood cultures. We encouraged pt to raise her legs to help venous return. An was US to r/o DVT but she decline that due to pain. Nursing did topical care. (10) Non-pressure ulcer of left lower extremity limited to breakdown of skin (L97.921) The wound culture grew Pseudomonas, Klebsiella, Enterococcus and Raoultella. These were all sensitive to ciprofloxacin. She was started on ciprofloxacin on 03/28/21 and she will need a total of 5 days of treatment to end 04/02/21. (11) Lymphedema As per her history. - ALLERGIES Allergies/Adverse Reactions: Allergies Allergy/AdvReac Type Severity Reaction Status Date / Time propoxyphene [From Darvon] Allergy Hives Verified 03/25/21 14:11 - MEDICATIONS Home Medications: Ambulatory Orders Medication Instructions Recorded Confirmed Albuterol Sulfate [Proair 90 mcg IH PRN PRN 03/25/21 03/25/21 Digihaler] Empagliflozin [Jardiance] 1 tab PO DAILY 03/25/21 03/25/21 Furosemide [Lasix] 40 mg PO DAILY 03/25/21 03/25/21 Glipizide [Glipizide Xl] 5 mg PO BID 03/25/21 03/25/21 Levothyroxine Sodium [Synthroid] 1 tab PO DAILY 03/25/21 03/25/21 Losartan Potassium 50 mg PO DAILY 03/25/21 03/25/21 Metformin HCl [Metformin ER 500 mg PO BID 03/25/21 03/25/21 Gastric] Potassium Chloride [Klor-Con 10] 10 meq PO DAILY 03/25/21 03/25/21 Aspirin EC [Ecotrin] 81 mg PO DAILY #30 tablet 03/31/21 Ciprofloxacin [Cipro] 500 mg PO BID #10 tablet 03/31/21 Fluticasone/Salmeterol [Advair 1 each IH BID #1 packet 03/31/21 250-50 Diskus] Insulin Glargine [Lantus Solostar] 10 unit SUBQ QPM #1 pe 03/31/21 Metoprolol Succinate [Toprol Xl] 50 mg PO DAILY #30 tablet 03/31/21 Potassium Chloride [K-Dur] 20 meq PO Q2D #15 tablet 03/31/21 Saccharomyces Boulardii [Florastor] 250 mg PO BID #5 03/31/21 Tiotropium [place] [Spiriva 4 gm IH BID #1 inhaler 03/31/21 Respimat] Lancets 1 each [facility] #120 each 04/02/21 [place], Filter [Monoject Filter 1 each [facility] #120 units 04/04/21 Needle] - PHYSICAL EXAM AT DISCHARGE General Appearance: positive: No acute distress, Alert Eyes Bilateral: positive: Normal inspection, EOMI ENT: positive: ENT inspection nml, No signs of dehydration, Other (Wearing O2 per n.c.) Neck: positive: Nml inspection (Obese) Respiratory: positive: No respiratory distress, Other (Poor air mvm, no wheezing) Cardiovascular: positive: Regular rate & rhythm (Distant heart sounds due to large breasts) Abdomen: positive: Nml bowel sounds, Other (Obese with a pannus) Skin: positive: Warm, Dry Extremities: positive: Other (2+ edema to posterio thighs, shins red, not warm. Eschared scar of left medial ankle.) Neurologic/Psychiatric: positive: Oriented x3 (Non-focal grossly.) - LABS Result Diagrams: 03/31/21 05:14 03/31/21 05:14 - DIAGNOSTIC IMAGING Diagnostic Imaging Results: Final report reviewed - FOLLOW UP Follow Up: See PCP in 1-2 weeks for hospital follow-up. Consider Pulmonology referral, a sleep study, PFTs, and Pulmonary Rehab referral to [facility] here.
[2021-03-31 11:40] VITALS: BP 130/68
== END 2021-03-31 13:40 | disposition home or self-care (01) | DRG 189 ==
LOC: EDUNIT# → ED 13:49 → MS2 17:38 → OBSVTOIN 03-27 10:05
PROVIDERS: ADMIT Internal Medicine Hematology & Oncology; ATTEND Internal Medicine
DX: J96.91 Respiratory failure, unspecified with hypoxia (principal); J96.02 Acute respiratory failure with hypercapnia; I50.31 Acute diastolic (congestive) heart failure; L97.929 Non-pressure chronic ulcer of unspecified part of left lower leg with unspecified severity; J44.1 Chronic obstructive pulmonary disease with (acute) exacerbation; Z68.42 Body mass index [BMI] 45.0-49.9, adult; I10 Essential (primary) hypertension; E66.2 Morbid (severe) obesity with alveolar hypoventilation; L97.921 Non-pressure chronic ulcer of unspecified part of left lower leg limited to breakdown of skin; E66.9 Obesity, unspecified; J96.01 Acute respiratory failure with hypoxia; I48.0 Paroxysmal atrial fibrillation; Z20.822 Contact with and (suspected) exposure to COVID-19; I11.0 Hypertensive heart disease with heart failure; E11.622 Type 2 diabetes mellitus with other skin ulcer; E11.51 Type 2 diabetes mellitus with diabetic peripheral angiopathy without gangrene; Z85.89 Personal history of malignant neoplasm of other organs and systems; E11.65 Type 2 diabetes mellitus with hyperglycemia; I89.0 Lymphedema, not elsewhere classified; E03.9 Hypothyroidism, unspecified; Z66 Do not resuscitate; Z74.09 Other reduced mobility; Z77.22 Contact with and (suspected) exposure to environmental tobacco smoke (acute) (chronic); Z79.84 Long term (current) use of oral hypoglycemic drugs; Z79.899 Other long term (current) drug therapy
CPT/HCPCS: 36415; 36600; 71045; 71275; 80048; 80053; 82803; 83036; 83690; 83880; 84443; 84484; 85025; 87040; 87070; 87077; 87181; 87205; 87493; 87631; 93005; 93306; 93970; 94640; 94761; 96365; 96366; 96372; 96375; 96376; 99285; A9270; G0378; J1650; J1815; J7626; Q9967; 0202U

== ENCOUNTER 2021-06-06 12:01 | Emergency (ER) | payer MEDICARE, OTHER ==
[2021-06-06] MEDS ORDERED: ACETAMINOPHEN/CODEINE 300 MG/30 MG TABLET PO STA (12:23)
[2021-06-06] MEDS ORDERED: FUROSEMIDE 40 MG/4 ML VIAL IVP STA (12:23)
[2021-06-06] MEDS ORDERED: BACITRACIN ZINC OINT 1 PACKET TOP STA (12:25)
--- NOTE | 2021-06-06 12:25 | ED Physician Documentation ---
History of Present Illness - Stated complaint Stated Complaint: LEG PX - History obtained from History obtained from: Patient - Additonal information Additional information: 71-year-old woman history of hypertension, asthma, diabetes, abdominal cancer, morbid obesity, and bilateral lower extremity edema. She was admitted here from the through 31 March with worsening edema, shortness of breath. She was found to have polymicrobial infection of the legs with venous stasis. She was hypoxic and sent home after a oxygen test with home oxygen at 1 to 2 L/min. Since discharge, her legs have become much worse. Her breathing is only slightly worse. She went to wound care once, but it left her in so much pain that she refused to go back. She lives at home with her who it sounds like is not very helpful with any wound care needs but is "sympathetic." She has a history of COPD from secondhand smoke, never a primary smoker. Her pain was being managed with codeine, she ran out of that this morning. It was a dental prescription. She denies fevers or chills. Review of Systems Ten Systems: 10 systems reviewed and negative Constitutional: reports: Fatigue Respiratory: reports: Dyspnea GI: denies: Abdominal Pain, Nausea, Vomiting PD PAST MEDICAL HISTORY - Past Medical History Cardiovascular: Hypertension Respiratory: Asthma Endocrine/Autoimmune: Type 2 diabetes - Past Surgical History Past Surgical History: Yes /[employer]: Hysterectomy - Present Medications Home Medications: Ambulatory Orders Medication Instructions Recorded Confirmed Albuterol Sulfate [Proair 90 mcg IH PRN PRN 03/25/21 06/06/21 Digihaler] Empagliflozin [Jardiance] 1 tab PO DAILY 03/25/21 06/06/21 Furosemide [Lasix] 80 mg PO DAILY 03/25/21 06/06/21 Glipizide [Glipizide Xl] 5 mg PO BID 03/25/21 06/06/21 Levothyroxine Sodium [Synthroid] 1 tab PO DAILY 03/25/21 06/06/21 Losartan Potassium 50 mg PO DAILY 03/25/21 06/06/21 Metformin HCl [Metformin ER 500 mg PO BID 03/25/21 06/06/21 Gastric] Potassium Chloride [Klor-Con 10] 10 meq PO DAILY 03/25/21 06/06/21 Aspirin EC [Ecotrin] 81 mg PO DAILY #30 tablet 03/31/21 06/06/21 Fluticasone/Salmeterol [Advair 1 each IH BID #1 packet 03/31/21 06/06/21 250-50 Diskus] Insulin Glargine [Lantus Solostar] 10 unit SUBQ QPM #1 pe 03/31/21 06/06/21 Metoprolol Succinate [Toprol Xl] 50 mg PO DAILY #30 tablet 03/31/21 06/06/21 Potassium Chloride [K-Dur] 20 meq PO Q2D #15 tablet 03/31/21 06/06/21 Saccharomyces Boulardii [Florastor] 250 mg PO BID #5 03/31/21 06/06/21 Tiotropium [place] [Spiriva 4 gm IH BID #1 inhaler 03/31/21 06/06/21 Respimat] Lancets 1 each ACHS #120 each 04/02/21 06/06/21 [place], Filter [Monoject Filter 1 each ACHS #120 units 04/04/21 06/06/21 Needle] Ciprofloxacin HCl 1 tablet PO BID 7 Days #14 tablet 06/08/21 - Allergies Allergies/Adverse Reactions: Allergies Allergy/AdvReac Type Severity Reaction Status Date / Time propoxyphene [From Darvon] Allergy Hives Verified 03/25/21 14:11 - Social History Does the pt smoke?: No Smoking Status: Never smoker Does the pt drink ETOH?: No Does the pt have substance abuse?: No - Family History Family history: reports: Non contributory - Immunizations Immunizations are current?: No - POLST Patient has POLST: No PD ED PE NORMAL - Vitals Vital signs reviewed: Yes - General General: Alert and oriented X 3, Other (She appears breathless, that said she arrives without supplemental oxygen which she is supposed to be on at home.) - HEENT HEENT: PERRL, EOMI - Neck Neck: Supple, no meningeal sign, No bony TTP - Cardiac Cardiac: RRR, No murmur - Respiratory Respiratory: Other (Quite diminished throughout and tachypneic, speaking in short sentences.) - Abdomen Abdomen: Soft, Non tender - Back Back: No CVA TTP, No spinal TTP - Derm Derm: Normal color, Warm and dry - Extremities Extremities: Other (She has venous stasis both legs with a lot of purulent drainage of both legs. She has weeping and denuded skin of both legs fairly. Fairly symmetric. Pedal pulses are not palpated, about 3 to 4-second cap refill in both legs.) - Neuro Neuro: Alert and oriented X 3, Normal speech Results - Vitals Vitals: Vital Signs - 24 hr 06/07/21 06/07/21 06/07/21 15:24 18:09 21:18 Temperature 36.6 C Heart Rate 91 80 91 Respiratory 17 24 Rate Blood Pressure 137/121 H 117/57 L 99/89 H O2 Saturation 93 92 06/07/21 06/08/21 06/08/21 23:00 03:00 09:50 Temperature Heart Rate 89 88 89 Respiratory 19 17 13 Rate Blood Pressure 126/67 156/90 H 138/66 H O2 Saturation 92 98 06/08/21 12:39 Temperature Heart Rate 96 Respiratory 15 Rate Blood Pressure 153/84 H O2 Saturation 96 Oxygen O2 Source Nasal cannula - EKG (time done) 1315 Rate: Rate (enter#) (104) Rhythm: Atrial fibrillation [place]: RAD Intervals: Prolonged QT Ischemia: Normal ST segments, Q waves. No: ST elevation c/w ischemia, ST elevation c/w repol, ST depression - Labs Labs: Microbiology 06/06/21 12:40 Blood Culture - Preliminary Blood NO GROWTH AFTER 2 DAYS 06/06/21 12:35 Blood Culture - Preliminary Blood NO GROWTH AFTER 2 DAYS 06/06/21 12:24 Wound Culture - Preliminary Leg - Left Pseudomonas Aeruginosa Laboratory Tests 06/06/21 06/06/21 06/06/21 12:24 12:35 12:35 WBC 6.3 RBC 4.61 Hgb 13.5 Hct 43.4 MCV 94.1 MCH 29.3 MCHC 31.1 L RDW 14.0 Plt Count 275 MPV 9.3 Neut # (Auto) 4.7 Lymph # (Auto) 0.9 L [place] # (Auto) 0.5 Eos # (Auto) 0.2 Baso # (Auto) 0.0 Absolute Nucleated RBC 0.00 Nucleated RBC % 0.0 PT 11.8 INR 1.1 VBG pH VBG pCO2 VBG pO2 VBG HCO3 VBG Total CO2 VBG O2 Saturation VBG Base Excess Sodium Potassium Chloride Carbon Dioxide Anion Gap BUN Creatinine Estimated GFR (MDRD) Glucose POC Whole Bld Glucose Lactic Acid Calcium Total Bilirubin AST ALT Alkaline Phosphatase Troponin I High Sens B-Natriuretic Peptide Total Protein Albumin Globulin Albumin/Globulin Ratio TSH Nasal Adenovirus (PCR) NOT DETECTED Nasal B. parapertussis DNA (PCR) NOT DETECTED Nasal Coronavir 229E PCR NOT DETECTED Nasal Coronavir HKU1 PCR NOT DETECTED Nasal Coronavir NL63 PCR NOT DETECTED Nasal Coronavir OC43 PCR NOT DETECTED Nasal Enterovir/Rhinovir PCR NOT DETECTED Nasal Influenza B PCR NOT DETECTED Nasal Influenza A PCR NOT DETECTED Nasal Parainfluen 1 PCR NOT DETECTED Nasal Parainfluen 2 PCR NOT DETECTED Nasal Parainfluen 3 PCR NOT DETECTED Nasal Parainfluen 4 PCR NOT DETECTED Nasal RSV (PCR) NOT DETECTED Nasal B.pertussis DNA PCR NOT DETECTED Nasal C.pneumoniae (PCR) NOT DETECTED [place] Human Metapneumo PCR NOT DETECTED Nasal M.pneumoniae (PCR) NOT DETECTED Nasal SARS-CoV-2 (PCR) NOT DETECTED 06/06/21 06/06/21 06/06/21 12:35 12:35 12:35 WBC RBC Hgb Hct MCV MCH MCHC RDW Plt Count MPV Neut # (Auto) Lymph # (Auto) [place] # (Auto) Eos # (Auto) Baso # (Auto) Absolute Nucleated RBC Nucleated RBC % PT INR VBG pH VBG pCO2 VBG pO2 VBG HCO3 VBG Total CO2 VBG O2 Saturation VBG Base Excess Sodium 135 Potassium 3.2 L Chloride 95 L Carbon Dioxide 27 Anion Gap 13.0 BUN 13 Creatinine 0.9 Estimated GFR (MDRD) 61 L Glucose 309 H POC Whole Bld Glucose Lactic Acid 1.9 Calcium 8.9 Total Bilirubin 0.6 AST 13 ALT 15 Alkaline Phosphatase 93 Troponin I High Sens B-Natriuretic Peptide 25 Total Protein 7.8 Albumin 3.5 Globulin 4.3 H Albumin/Globulin Ratio 0.8 L TSH Nasal Adenovirus (PCR) Nasal B. parapertussis DNA (PCR) Nasal Coronavir 229E PCR Nasal Coronavir HKU1 PCR Nasal Coronavir NL63 PCR Nasal Coronavir OC43 PCR Nasal Enterovir/Rhinovir PCR Nasal Influenza B PCR Nasal Influenza A PCR Nasal Parainfluen 1 PCR Nasal Parainfluen 2 PCR Nasal Parainfluen 3 PCR Nasal Parainfluen 4 PCR Nasal RSV (PCR) Nasal B.pertussis DNA PCR Nasal C.pneumoniae (PCR) [place] Human Metapneumo PCR Nasal M.pneumoniae (PCR) Nasal SARS-CoV-2 (PCR) 06/06/21 06/06/21 06/06/21 12:35 12:35 12:35 WBC RBC Hgb Hct MCV MCH MCHC RDW Plt Count MPV Neut # (Auto) Lymph # (Auto) [place] # (Auto) Eos # (Auto) Baso # (Auto) Absolute Nucleated RBC Nucleated RBC % PT INR VBG pH 7.311 VBG pCO2 51.4 H VBG pO2 27.5 VBG HCO3 25.4 VBG Total CO2 26.9 VBG O2 Saturation 49.5 L VBG Base Excess -1.6 Sodium Potassium Chloride Carbon Dioxide Anion Gap BUN Creatinine Estimated GFR (MDRD) Glucose POC Whole Bld Glucose Lactic Acid Calcium Total Bilirubin AST ALT Alkaline Phosphatase Troponin I High Sens 6.9 B-Natriuretic Peptide Total Protein Albumin Globulin Albumin/Globulin Ratio TSH 15.05 H Nasal Adenovirus (PCR) Nasal B. parapertussis DNA (PCR) Nasal Coronavir 229E PCR Nasal Coronavir HKU1 PCR Nasal Coronavir NL63 PCR Nasal Coronavir OC43 PCR Nasal Enterovir/Rhinovir PCR Nasal Influenza B PCR Nasal Influenza A PCR Nasal Parainfluen 1 PCR Nasal Parainfluen 2 PCR Nasal Parainfluen 3 PCR Nasal Parainfluen 4 PCR Nasal RSV (PCR) Nasal B.pertussis DNA PCR Nasal C.pneumoniae (PCR) [place] Human Metapneumo PCR Nasal M.pneumoniae (PCR) Nasal SARS-CoV-2 (PCR) 06/06/21 20:29 WBC RBC Hgb Hct MCV MCH MCHC RDW Plt Count MPV Neut # (Auto) Lymph # (Auto) [place] # (Auto) Eos # (Auto) Baso # (Auto) Absolute Nucleated RBC Nucleated RBC % PT INR VBG pH VBG pCO2 VBG pO2 VBG HCO3 VBG Total CO2 VBG O2 Saturation VBG Base Excess Sodium Potassium Chloride Carbon Dioxide Anion Gap BUN Creatinine Estimated GFR (MDRD) Glucose POC Whole Bld Glucose 320 H Lactic Acid Calcium Total Bilirubin AST ALT Alkaline Phosphatase Troponin I High Sens B-Natriuretic Peptide Total Protein Albumin Globulin Albumin/Globulin Ratio TSH Nasal Adenovirus (PCR) Nasal B. parapertussis DNA (PCR) Nasal Coronavir 229E PCR Nasal Coronavir HKU1 PCR Nasal Coronavir NL63 PCR Nasal Coronavir OC43 PCR Nasal Enterovir/Rhinovir PCR Nasal Influenza B PCR Nasal Influenza A PCR Nasal Parainfluen 1 PCR Nasal Parainfluen 2 PCR Nasal Parainfluen 3 PCR Nasal Parainfluen 4 PCR Nasal RSV (PCR) Nasal B.pertussis DNA PCR Nasal C.pneumoniae (PCR) [place] Human Metapneumo PCR Nasal M.pneumoniae (PCR) Nasal SARS-CoV-2 (PCR) - Rads (name of study) Single view chest x-ray demonstrates stable cardiomegaly and interstitial prominence suggestive of edema/CHF versus viral infection Radiology: EMP read contemporaneously PD MEDICAL DECISION MAKING - ED course ED course: This is a 71-year-old with multiple comorbidities not at the least of which include atrial fibrillation, COPD, morbid obesity, obesity hypoventilation syndrome and bilateral lower extremity lymphedema who presents with worsening of bilateral lower extremity wounds having eschewed wound care due to pain. There is no evidence of sepsis. Her white count is normal. No evidence of cardiovascular decompensation over her baseline. Case presented to Dr Zimmerman about 2pm but she does not fit criteria for admission. Patient is amenable to SNF placement and SW C/S placed for same. Update: June 07 at 3 PM. She is being considered by 2 SNFs, they need a wound care consult and unfortunately wound care is not here today and they will assess her tomorrow reportedly. Update: June 08 1pm, accepted at [facility], See DURABLE MEDICAL EQUIPMENT REPAIRER notes. Departure - Departure Disposition: Home, Self Care Clinical Impression: Obesity hypoventilation syndrome, Cellulitis of both lower extremities, Lymphedema, Diabetes Condition: Stable Record reviewed to determine appropriate education?: Yes Instructions: Cellulitis Dc Comments: Home medications are: 1. Cipro 500mg PO BID through 06/18 2. Tiotropium bromide for 1 puff twice a day 3. Potassium chloride 20 mg equivalents p.o. daily 4. Metoprolol XL 50 mg p.o. daily 5. Metformin 500 mg p.o. twice daily 6. Losartan 50 mg p.o. daily 7. Synthroid 137 mcg p.o. daily 8. Advair 250/50 1 puff inhaled twice daily 9. Aspirin 81 mg p.o. daily 10. Lantus 10 units subcutaneously at night 11. Glipizide XL 500 mg p.o. twice daily 12. Furosemide 40 mg, 2 tablets p.o. daily 13. Tylenol 650 mg every 6 hours 14. Gabapentin 200 mg 3 times a day
[2021-06-06 12:47] LABS: VBG BASE EXCESS -1.6 mmol/L (-2 - +2); VBG HCO3 25.4 mmol/L (23-28); VBG OXYGEN SATURATION 49.5 % (60-80); VBG PCO2 51.4 mmHg (41-51); VBG PH 7.311 (7.31-7.41); VBG PO2 27.5 mmHg (25-47); VBG TOTAL CO2 26.9 mmol/L (24-29)
[2021-06-06 12:50] LABS: BASOPHILS % (AUTO) 0.6 %; EOSINOPHILS # (AUTO) 0.2 10^3/uL (0.0-0.7); EOSINOPHILS % (AUTO) 3.2 %; HCT - HEMATOCRIT 43.4 % (37.0-47.0); HGB - HEMOGLOBIN 13.5 g/dL (12.0-16.0); LYMPHOCYTES # (AUTO) 0.9 10^3/uL (1.5-3.5); LYMPHOCYTES % (AUTO) 13.5 %; MEAN CORPUSCULAR HEMOGLOBIN 29.3 pg (27.0-31.0); MEAN CORPUSCULAR HGB CONC 31.1 g/dL (32.0-36.0); MEAN CORPUSCULAR VOLUME 94.1 fL (81.0-99.0); MEAN PLATELET VOLUME 9.3 fL (7.9-10.8); MONOCYTES # (AUTO) 0.5 10^3/uL (0.0-1.0); MONOCYTES % (AUTO) 7.8 %; NEUTROPHILS # (AUTO) 4.7 10^3/uL (1.5-6.6); NEUTROPHILS % (AUTO) 73.8 %; PLT - PLATELET COUNT 275 10^3/uL (130-450); RED BLOOD COUNT 4.61 10^6/uL (4.20-5.40); WHITE BLOOD COUNT 6.3 x10^3/uL (4.8-10.8)
--- NOTE | 2021-06-06 12:50 | XRAY Report ---
PROCEDURE: Chest 1 View X-Ray INDICATIONS: dyspnea TECHNIQUE: One view of the chest was acquired. COMPARISON: 09/03/2021; CT dated 03/25/2021 FINDINGS: Overlying EKG wires. Surgical changes and devices: None. Lungs and pleura: No pleural effusions or pneumothorax. Mild interstitial prominence. No focal conso lidation. Mediastinum: Mediastinal contours appear normal. Stable cardiomegaly. Bones and chest wall: No suspicious bony lesions. Overlying soft tissues appear unremarkable. IMPRESSION: Stable cardiomegaly and interstitial prominence suggestive of interstitial edema/CHF. Atypical infect ion could appear similarly in the correct clinical setting. Reviewed by: Cristian Cespedes DO on 06/06/2021 11:48 AM NIVIA Approved by: Cristian Cespedes DO on 06/06/2021 11:48 AM NIVIA Station ID: [id number]
[2021-06-06 12:55] LABS: INR 1.1 (0.8-1.2); PT - PROTHROMBIN TIME 11.8 secs (9.9-12.6)
[2021-06-06] MEDS ORDERED: ONDANSETRON 4 MG/2 ML VIAL IVP STA (13:03)
[2021-06-06 13:25] LABS: ALBUMIN 3.5 g/dL (3.2-5.5); ALBUMIN/GLOBULIN RATIO 0.8 (1.0-2.2); BILIRUBIN,TOTAL 0.6 mg/dL (0.2-1.0); CALCIUM 8.9 mg/dL (8.5-10.3); CREATININE 0.9 mg/dL (0.4-1.0); POTASSIUM 3.2 mmol/L (3.5-5.0); TOTAL PROTEIN 7.8 g/dL (6.7-8.2)
[2021-06-06 13:29] LABS: B. PARAPERTUSSIS- RESP PCR PAN NOT DETECTED; B. PERTUSSIS- RESP PCR PANEL NOT DETECTED; C. PNEUMONIAE- RESP PCR PANEL NOT DETECTED; CORONAVIRUS 229E-RESP PCR NOT DETECTED; CORONAVIRUS HKU1-RESP PCR NOT DETECTED; CORONAVIRUS NL63-RESP PCR NOT DETECTED; CORONAVIRUS OC43-RESP PCR NOT DETECTED; HUMAN METAPNEUMOVIRUS NOT DETECTED; INFLUENZA A- RESP PCR PANEL NOT DETECTED; INFLUENZA B - RESP PCR PANEL NOT DETECTED; M. PNEUMONIAE- RESP PCR PANEL NOT DETECTED; PARAINFLUENZA VIRUS 1 NOT DETECTED; PARAINFLUENZA VIRUS 2 NOT DETECTED; PARAINFLUENZA VIRUS 3 NOT DETECTED; PARAINFLUENZA VIRUS 4 NOT DETECTED; RHINOVIRUS/ENTEROVIRUS NOT DETECTED; RSV- RESP PCR PANEL NOT DETECTED; SARS-CoV-2 -RESP PCR PANEL NOT DETECTED
[2021-06-06] MEDS ORDERED: oxyCODONE 5 MG TABLET PO STA ×2 (13:42→15:43)
[2021-06-06] MEDS ORDERED: METOPROLOL TARTRATE 50 MG TABLET PO STA (13:46)
[2021-06-06] MEDS ORDERED: AMOX/CLAV 875 MG/125 MG TABLET PO STA (14:00)
[2021-06-06] MEDS: oxyCODONE 5 MG TABLET PO PRN (18:29)
[2021-06-06] MEDS ORDERED: HYDROmorphone 1 MG/ML CARPUJECT IVP STA (20:37)
[2021-06-06] MEDS: INSULIN GLARGINE 300 UNIT/3 ML PEN SUBQ SCH (20:44)
[2021-06-06] MEDS: GABAPENTIN 100 MG CAPSULE PO SCH (20:44)
[2021-06-06] MEDS: ACETAMINOPHEN 325 MG TABLET PO SCH (20:44)
[2021-06-06] MEDS: AMOX/CLAV 875 MG/125 MG TABLET PO SCH (20:44)
[2021-06-06] MEDS: metFORMIN 500 MG TABLET PO SCH (20:44)
[2021-06-07] MEDS: ACETAMINOPHEN 325 MG TABLET PO SCH ×4 (03:00→21:06)
[2021-06-07] MEDS: GABAPENTIN 100 MG CAPSULE PO SCH ×3 (06:07→21:06)
[2021-06-07] MEDS: AMOX/CLAV 875 MG/125 MG TABLET PO SCH ×2 (09:39→21:07)
[2021-06-07] MEDS: POTASSIUM CHLORIDE 20 MEQ TABLET PO SCH (09:39)
[2021-06-07] MEDS: METOPROLOL SUCCINATE 50 MG TABLET PO SCH (09:39)
[2021-06-07] MEDS: FUROSEMIDE 20 MG TABLET PO SCH (09:40)
[2021-06-07] MEDS: LOSARTAN 50 MG TABLET PO SCH (09:40)
[2021-06-07] MEDS: metFORMIN 500 MG TABLET PO SCH ×2 (09:40→21:16)
[2021-06-07] MEDS: INSULIN GLARGINE 300 UNIT/3 ML PEN SUBQ SCH (21:12)
[2021-06-08] MEDS: ACETAMINOPHEN 325 MG TABLET PO SCH ×4 (03:26→20:15)
[2021-06-08] MEDS: GABAPENTIN 100 MG CAPSULE PO SCH ×3 (06:25→20:16)
[2021-06-08] MEDS: AMOX/CLAV 875 MG/125 MG TABLET PO SCH ×2 (09:42→20:16)
[2021-06-08] MEDS: metFORMIN 500 MG TABLET PO SCH ×2 (09:42→20:16)
[2021-06-08] MEDS: METOPROLOL SUCCINATE 50 MG TABLET PO SCH (09:43)
[2021-06-08] MEDS: FUROSEMIDE 20 MG TABLET PO SCH (09:43)
[2021-06-08] MEDS: POTASSIUM CHLORIDE 20 MEQ TABLET PO SCH (09:43)
[2021-06-08] MEDS: LOSARTAN 50 MG TABLET PO SCH (09:43)
[2021-06-08] MEDS ORDERED: ONDANSETRON 4 MG/2 ML VIAL IVP STA (10:29)
[2021-06-08] MEDS ORDERED: HYDROmorphone 1 MG/ML CARPUJECT IVP STA (10:29)
[2021-06-08] MEDS ORDERED: CIPROFLOXACIN 400 MG/200 ML 400 MG/200 ML BAG IV STA (13:32)
[2021-06-08] MEDS: CIPROFLOXACIN 250 MG TABLET PO SCH ×2 (14:48→15:07)
[2021-06-08] MEDS: INSULIN GLARGINE 300 UNIT/3 ML PEN SUBQ SCH (20:16)
[2021-06-08] MEDS ORDERED: HYDROmorphone 0.5 MG/0.5 ML SYRINGE IVP STA (23:02)
[2021-06-08] MEDS ORDERED: HYDROmorphone 0.5 MG/0.5 ML SYRINGE IM STA (23:10)
--- NOTE | 2021-06-09 00:46 | ED Physician Documentation ---
ED Addendum - Addendum Addendum: 06/09/21 00:45 Patient febrile overnight with axillary temp 38.1. she has had one dose of IV cipro for pseudomonas wound infection, started yesterday. prior to that was on augmentin. she has a script for cipro sent to her pharmacy in anticipation of discharge to [facility] 06/09. blood cultures drawn, antipyretic/pain meds given. She is already on appropriate antibiotics so we will continue to monitor. If afebrile tomorrow we will likely proceed with discharge as planned. 06/09/21 00:49
[2021-06-09] MEDS ORDERED: KETOROLAC 30 MG/ML VIAL IM STA (00:48)
[2021-06-09] MEDS: oxyCODONE 5 MG TABLET PO PRN ×2 (01:45→09:47)
[2021-06-09] MEDS: ACETAMINOPHEN 325 MG TABLET PO SCH ×2 (02:47→09:42)
[2021-06-09] MEDS: GABAPENTIN 100 MG CAPSULE PO SCH ×2 (05:52→13:58)
[2021-06-09] MEDS: AMOX/CLAV 875 MG/125 MG TABLET PO SCH (09:43)
[2021-06-09] MEDS: CIPROFLOXACIN 250 MG TABLET PO SCH (09:44)
[2021-06-09] MEDS: FUROSEMIDE 20 MG TABLET PO SCH (09:45)
[2021-06-09] MEDS: LOSARTAN 50 MG TABLET PO SCH (09:46)
[2021-06-09] MEDS: POTASSIUM CHLORIDE 20 MEQ TABLET PO SCH (09:47)
[2021-06-09] MEDS: METOPROLOL SUCCINATE 50 MG TABLET PO SCH (09:47)
[2021-06-09] MEDS: metFORMIN 500 MG TABLET PO SCH (09:47)
--- NOTE | 2021-06-09 14:10 | ED Physician Documentation ---
ED Addendum - Addendum Addendum: The patient reportedly is doing okay today. No further fevers. She had been seen by wound care clinic and prescribed Cipro for her leg infection. She is sitting up bedside and getting dressed and wishing to go home. Social work talked with her. There was apparently no indication for admission with her current symptoms and the patient did not wish to have social work check for further SNF placements. Apparently regions declined her or such. At this point social work offered to check other facilities but the patient would prefer going home. Social work talked with her who is willing to come up pick her up and bring her home. At this point we will discharge her home. Final diagnoses: Leg infection General weakness Disposition: The patient is discharged home in stable condition. 06/09/21 14:08
[2021-06-09 15:01] VITALS: BP 117/64
== END 2021-06-09 14:25 | disposition home or self-care (01) ==
LOC: ED 12:01
DX: L03.116 Cellulitis of left lower limb (principal); L03.115 Cellulitis of right lower limb; I89.0 Lymphedema, not elsewhere classified; J44.9 Chronic obstructive pulmonary disease, unspecified; Z77.22 Contact with and (suspected) exposure to environmental tobacco smoke (acute) (chronic); Z79.4 Long term (current) use of insulin; Z79.84 Long term (current) use of oral hypoglycemic drugs; I10 Essential (primary) hypertension; I48.91 Unspecified atrial fibrillation; E66.2 Morbid (severe) obesity with alveolar hypoventilation; E11.9 Type 2 diabetes mellitus without complications; Z20.822 Contact with and (suspected) exposure to COVID-19
CPT/HCPCS: 36415; 71045; 80053; 82803; 83605; 83880; 84443; 84484; 85025; 85610; 87040; 87070; 87077; 87181; 87205; 87631; 93005; 96372; 96374; 96375; 96376; 99284; 99285; A9270; J1170; J1815; 0202U

== ENCOUNTER 2021-07-12 12:09 | Outpatient (CLI) | payer MEDICARE, OTHER | END 2021-07-12 12:10 | disposition critical access hospital (66) | LOC: EMS 12:09 | DX: R06.00 Dyspnea, unspecified (principal); M79.605 Pain in left leg; M79.604 Pain in right leg; R60.0 Localized edema; L98.9 Disorder of the skin and subcutaneous tissue, unspecified | CPT/HCPCS: A0425; A0429 ==

== ENCOUNTER 2021-07-12 12:26 | Emergency (ER) | payer MEDICARE, OTHER ==
[2021-07-12] MEDS ORDERED: SODIUM CHLORIDE 0.9% 1,000 ML IV STA ×2 (12:42→13:53)
[2021-07-12] MEDS ORDERED: HYDROmorphone 1 MG/ML CARPUJECT IVP STA (12:42)
[2021-07-12] MEDS ORDERED: ONDANSETRON 4 MG/2 ML VIAL IVP STA (12:43)
[2021-07-12] MEDS ORDERED: LORazepam 2 MG/ML VIAL IVP STA (12:43)
[2021-07-12 13:09] LABS: BASOPHILS # (AUTO) 0.1 10^3/uL (0.0-0.1); BASOPHILS % (AUTO) 0.7 %; EOSINOPHILS # (AUTO) 0.1 10^3/uL (0.0-0.7); EOSINOPHILS % (AUTO) 0.7 %; HCT - HEMATOCRIT 48.8 % (37.0-47.0); LYMPHOCYTES # (AUTO) 0.5 10^3/uL (1.5-3.5); LYMPHOCYTES % (AUTO) 5.5 %; MEAN CORPUSCULAR HEMOGLOBIN 29.6 pg (27.0-31.0); MEAN CORPUSCULAR HGB CONC 30.7 g/dL (32.0-36.0); MEAN CORPUSCULAR VOLUME 96.3 fL (81.0-99.0); MEAN PLATELET VOLUME 8.8 fL (7.9-10.8); MONOCYTES # (AUTO) 0.7 10^3/uL (0.0-1.0); MONOCYTES % (AUTO) 7.4 %; NEUTROPHILS # (AUTO) 7.8 10^3/uL (1.5-6.6); NEUTROPHILS % (AUTO) 84.4 %; PLT - PLATELET COUNT 287 10^3/uL (130-450); RED BLOOD COUNT 5.07 10^6/uL (4.20-5.40); RED CELL DISTRIBUTION WIDTH 14.8 % (12.0-15.0); WHITE BLOOD COUNT 9.2 x10^3/uL (4.8-10.8)
[2021-07-12 13:28] LABS: ALBUMIN 3.5 g/dL (3.2-5.5); ALBUMIN/GLOBULIN RATIO 0.7 (1.0-2.2); BILIRUBIN,TOTAL 0.4 mg/dL (0.2-1.0); CALCIUM 9.5 mg/dL (8.5-10.3); CREATININE 3.8 mg/dL (0.4-1.0); TOTAL PROTEIN 8.2 g/dL (6.7-8.2)
[2021-07-12 13:33] LABS: POTASSIUM 7.6 mmol/L (3.5-5.0)
[2021-07-12 13:48] LABS: INR 1.1 (0.8-1.2); PT - PROTHROMBIN TIME 12.3 secs (9.9-12.6)
[2021-07-12] MEDS ORDERED: IPRATROPIUM/ALBUTEROL 3 ML NEB INH STA (13:55)
[2021-07-12] MEDS ORDERED: CALCIUM GLUCONATE 1,000 MG in SODIUM CHLORIDE 0.9% 50 ML IV STA ×2 (13:59→15:40)
[2021-07-12 14:18] LABS: MAGNESIUM 2.4 mg/dL (1.7-2.8); PHOSPHORUS 6.9 mg/dL (2.5-4.6)
[2021-07-12 14:19] LABS: POTASSIUM 7.3 mmol/L (3.5-5.0)
--- NOTE | 2021-07-12 14:47 | XRAY Report ---
PROCEDURE: Chest 1 View X-Ray INDICATIONS: chest pain TECHNIQUE: One view of the chest was acquired. COMPARISON: 06/06/2021, 03/27/2021. FINDINGS: Surgical changes and devices: None. Lungs and pleura: Increased interstitial prominence is similar but slightly more marked compared to the prior x-ray on 06/06/2021. No focal consolidation or mass. Mediastinum: Mediastinal contours appear normal. Heart size is enlarged. Bones and chest wall: No suspicious bony lesions. Overlying soft tissues appear unremarkable. IMPRESSION: 1. Stable cardiomegaly. 2. Diffuse increased interstitial prominence likely mild CHF. Reviewed by: Hugo Ray on 07/12/2021 2:46 PM PST Approved by: Hugo Ray on 07/12/2021 2:46 PM PST Station ID: [id number]
[2021-07-12] MEDS ORDERED: ALBUTEROL NEB 2.5 MG/3 ML INH SCH (15:00)
[2021-07-12 15:01] LABS: CORONAVIRUS 229E-RESP PCR NOT DETECTED; CORONAVIRUS HKU1-RESP PCR NOT DETECTED; CORONAVIRUS NL63-RESP PCR NOT DETECTED; CORONAVIRUS OC43-RESP PCR NOT DETECTED; HUMAN METAPNEUMOVIRUS NOT DETECTED; INFLUENZA A- RESP PCR PANEL NOT DETECTED; INFLUENZA B - RESP PCR PANEL NOT DETECTED; PARAINFLUENZA VIRUS 1 NOT DETECTED; PARAINFLUENZA VIRUS 2 NOT DETECTED; PARAINFLUENZA VIRUS 3 NOT DETECTED; PARAINFLUENZA VIRUS 4 NOT DETECTED; RHINOVIRUS/ENTEROVIRUS NOT DETECTED; SARS-CoV-2 -RESP PCR PANEL NOT DETECTED
[2021-07-12 15:02] LABS: B. PARAPERTUSSIS- RESP PCR PAN NOT DETECTED; B. PERTUSSIS- RESP PCR PANEL NOT DETECTED; C. PNEUMONIAE- RESP PCR PANEL NOT DETECTED; M. PNEUMONIAE- RESP PCR PANEL NOT DETECTED; RSV- RESP PCR PANEL NOT DETECTED
[2021-07-12] MEDS ORDERED: INSULIN REGULAR HUMAN 100 UNIT/1 ML 10 ML MDV SUBQ STA (15:41)
[2021-07-12] MEDS ORDERED: DEXTROSE 50% ABBOJECT 25 GM/50 ML SYRINGE IVP STA (15:41)
[2021-07-12 17:10] VITALS: BP 86/70
[2021-07-12] MEDS ORDERED: HYDROmorphone 1 MG/ML CARPUJECT IVP PRN (17:29)
[2021-07-12] MEDS ORDERED: LORazepam 2 MG/ML VIAL IVP PRN (17:29)
--- NOTE | 2021-07-12 17:33 | ED Physician Documentation ---
History of Present Illness - Stated complaint Stated Complaint: SOA - Chief complaint Chief Complaint: General - History obtained from History obtained from: Patient - Additonal information Additional information: Patient is a 71-year-old female coming into the emergency department with chief complaints of leg pain and shortness of breath. Arrives to the emergency department in acute distress. Leg pain. Was found to be hypoxic via hospice nurse earlier today. Declined hospice services in order to come to the emergency department for evaluation. Further history is limited by the patient's acute discomfort and altered mentation. 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 - Present Medications Home Medications: Ambulatory Orders Medication Instructions Recorded Confirmed Albuterol Sulfate [Proair 90 mcg IH PRN PRN 03/25/21 06/06/21 Digihaler] Empagliflozin [Jardiance] 1 tab PO DAILY 03/25/21 06/06/21 Furosemide [Lasix] 80 mg PO DAILY 03/25/21 06/06/21 Glipizide [Glipizide Xl] 5 mg PO BID 03/25/21 06/06/21 Levothyroxine Sodium [Synthroid] 1 tab PO DAILY 03/25/21 06/06/21 Losartan Potassium 50 mg PO DAILY 03/25/21 06/06/21 Metformin HCl [Metformin ER 500 mg PO BID 03/25/21 06/06/21 Gastric] Potassium Chloride [Klor-Con 10] 10 meq PO DAILY 03/25/21 06/06/21 Aspirin EC [Ecotrin] 81 mg PO DAILY #30 tablet 03/31/21 06/06/21 Fluticasone/Salmeterol [Advair 1 each IH BID #1 packet 03/31/21 06/06/21 250-50 Diskus] Insulin Glargine [Lantus Solostar] 10 unit SUBQ QPM #1 pe 03/31/21 06/06/21 Metoprolol Succinate [Toprol Xl] 50 mg PO DAILY #30 tablet 03/31/21 06/06/21 Potassium Chloride [K-Dur] 20 meq PO Q2D #15 tablet 03/31/21 06/06/21 Saccharomyces Boulardii [Florastor] 250 mg PO BID #5 03/31/21 06/06/21 Tiotropium [place] [Spiriva 4 gm IH BID #1 inhaler 03/31/21 06/06/21 Respimat] Lancets 1 each ACHS #120 each 04/02/21 06/06/21 [place], Filter [Monoject Filter 1 each ACHS #120 units 04/04/21 06/06/21 Needle] Ciprofloxacin HCl 1 tablet PO BID 7 Days #14 tablet 06/08/21 - Allergies Allergies/Adverse Reactions: Allergies Allergy/AdvReac Type Severity Reaction Status Date / Time propoxyphene [From Darvon] Allergy Hives Verified 03/25/21 14:11 - Social History Does the pt smoke?: No Smoking Status: Never smoker Does the pt drink ETOH?: No Does the pt have substance abuse?: No - Immunizations Immunizations are current?: No - POLST Patient has POLST: No PD ED PE NORMAL - Vitals Vital signs reviewed: Yes - General General: Other - HEENT HEENT: Atraumatic (Patient arrives in severe acute distress, screaming about pain. Is unable to answer questions due to her distress.) - Neck Neck: Supple, no meningeal sign - Cardiac Cardiac: RRR - Respiratory Respiratory: Other (Fine basilar crackles) - Abdomen Abdomen: Normal bowel sounds - Female Female : Deferred - Rectal Rectal: Deferred - Extremities Extremities: Other (There is severe chronic pitting edema bilaterally with skin breakdown and diffuse erythema without rubor and mucopurulence) Results - Vitals Vitals: Vital Signs - 24 hr 07/12/21 07/12/21 07/12/21 12:30 12:44 14:24 Temperature 36.1 C L 36.5 C Heart Rate 99 100 99 Respiratory 26 H 26 H 22 Rate Blood Pressure 168/100 H 168/100 H O2 Saturation 99 96 07/12/21 07/12/21 07/12/21 15:22 15:28 15:37 Temperature Heart Rate 94 98 95 Respiratory 15 13 Rate Blood Pressure 75/56 L 80/55 L O2 Saturation 88 L 98 07/12/21 07/12/21 16:28 17:09 Temperature 35.4 C L Heart Rate 102 H 109 H Respiratory 12 18 Rate Blood Pressure 85/64 L 86/70 L O2 Saturation 95 97 Oxygen O2 Source Non-rebreather mask - EKG (time done) 1351 Rate: Rate (enter#) Rhythm: NSR [place]: RAD Intervals: RBBB Ischemia: ST depression Compare to prior EKG: Changed from prior EKG Computer interpretation: Agree with computer 1550 Rate: Rate (enter#) (102) Rhythm: Atrial fibrillation [place]: RAD Intervals: RBBB Ischemia: ST depression Computer interpretation: Agree with computer - Labs Labs: Laboratory Tests 07/12/21 07/12/21 07/12/21 13:03 13:03 13:03 WBC 9.2 RBC 5.07 Hgb 15.0 Hct 48.8 H MCV 96.3 MCH 29.6 MCHC 30.7 L RDW 14.8 Plt Count 287 MPV 8.8 Neut # (Auto) 7.8 H Lymph # (Auto) 0.5 L [place] # (Auto) 0.7 Eos # (Auto) 0.1 Baso # (Auto) 0.1 Absolute Nucleated RBC 0.00 Nucleated RBC % 0.0 PT INR Sodium 129 L Potassium 7.6 H* Chloride 95 L Carbon Dioxide 21 Anion Gap 13.0 BUN 49 H Creatinine 3.8 H Estimated GFR (MDRD) 12 L Glucose 229 H Lactic Acid Calcium 9.5 Phosphorus Magnesium Total Bilirubin 0.4 AST 40 ALT 16 Alkaline Phosphatase 129 H CK-MB (CK-2) 36.1 H Troponin I High Sens Total Protein 8.2 Albumin 3.5 Globulin 4.7 H Albumin/Globulin Ratio 0.7 L Lipase 28 Nasal Adenovirus (PCR) Nasal B. parapertussis DNA (PCR) Nasal Coronavir 229E PCR Nasal Coronavir HKU1 PCR Nasal Coronavir NL63 PCR Nasal Coronavir OC43 PCR Nasal Enterovir/Rhinovir PCR Nasal Influenza B PCR Nasal Influenza A PCR Nasal Parainfluen 1 PCR Nasal Parainfluen 2 PCR Nasal Parainfluen 3 PCR Nasal Parainfluen 4 PCR Nasal RSV (PCR) Nasal B.pertussis DNA PCR Nasal C.pneumoniae (PCR) [place] Human Metapneumo PCR Nasal M.pneumoniae (PCR) Nasal SARS-CoV-2 (PCR) 07/12/21 07/12/21 07/12/21 13:03 13:03 13:56 WBC RBC Hgb Hct MCV MCH MCHC RDW Plt Count MPV Neut # (Auto) Lymph # (Auto) [place] # (Auto) Eos # (Auto) Baso # (Auto) Absolute Nucleated RBC Nucleated RBC % PT 12.3 INR 1.1 Sodium Potassium 7.3 H* Chloride Carbon Dioxide Anion Gap BUN Creatinine Estimated GFR (MDRD) Glucose Lactic Acid 2.4 H Calcium Phosphorus 6.9 H Magnesium 2.4 Total Bilirubin AST ALT Alkaline Phosphatase CK-MB (CK-2) Troponin I High Sens Total Protein Albumin Globulin Albumin/Globulin Ratio Lipase Nasal Adenovirus (PCR) Nasal B. parapertussis DNA (PCR) Nasal Coronavir 229E PCR Nasal Coronavir HKU1 PCR Nasal Coronavir NL63 PCR Nasal Coronavir OC43 PCR Nasal Enterovir/Rhinovir PCR Nasal Influenza B PCR Nasal Influenza A PCR Nasal Parainfluen 1 PCR Nasal Parainfluen 2 PCR Nasal Parainfluen 3 PCR Nasal Parainfluen 4 PCR Nasal RSV (PCR) Nasal B.pertussis DNA PCR Nasal C.pneumoniae (PCR) [place] Human Metapneumo PCR Nasal M.pneumoniae (PCR) Nasal SARS-CoV-2 (PCR) 07/12/21 07/12/21 07/12/21 13:56 13:58 16:16 WBC RBC Hgb Hct MCV MCH MCHC RDW Plt Count MPV Neut # (Auto) Lymph # (Auto) [place] # (Auto) Eos # (Auto) Baso # (Auto) Absolute Nucleated RBC Nucleated RBC % PT INR Sodium Potassium Chloride Carbon Dioxide Anion Gap BUN Creatinine Estimated GFR (MDRD) Glucose Lactic Acid Calcium Phosphorus Magnesium Total Bilirubin AST ALT Alkaline Phosphatase CK-MB (CK-2) Troponin I High Sens 68.2 H* 65.1 H* Total Protein Albumin Globulin Albumin/Globulin Ratio Lipase Nasal Adenovirus (PCR) NOT DETECTED Nasal B. parapertussis DNA (PCR) NOT DETECTED Nasal Coronavir 229E PCR NOT DETECTED Nasal Coronavir HKU1 PCR NOT DETECTED Nasal Coronavir NL63 PCR NOT DETECTED Nasal Coronavir OC43 PCR NOT DETECTED Nasal Enterovir/Rhinovir PCR NOT DETECTED Nasal Influenza B PCR NOT DETECTED Nasal Influenza A PCR NOT DETECTED Nasal Parainfluen 1 PCR NOT DETECTED Nasal Parainfluen 2 PCR NOT DETECTED Nasal Parainfluen 3 PCR NOT DETECTED Nasal Parainfluen 4 PCR NOT DETECTED Nasal RSV (PCR) NOT DETECTED Nasal B.pertussis DNA PCR NOT DETECTED Nasal C.pneumoniae (PCR) NOT DETECTED [place] Human Metapneumo PCR NOT DETECTED Nasal M.pneumoniae (PCR) NOT DETECTED Nasal SARS-CoV-2 (PCR) NOT DETECTED PD MEDICAL DECISION MAKING - ED course Complexity details: reviewed old records, reviewed results, re-evaluated patient, d/w patient, d/w family ED course: Patient is a 71-year-old female with known history of chronic lower extremity edema, recurrent chronic lower extremity cellulitis, noncompliance with wound care, chronic renal insufficiency presenting to the emergency department in acute distress secondary to pain with a new onset hypoxic respiratory failure. Arrived with POLST paperwork indicating that she is DNR comfort care only. She was acutely distressed on arrival and I ordered medication for pain. She also appeared somewhat confused on arrival to the emergency department. She was able to maintain early oxygen saturations on nasal cannula however her respiratory status diminished considerably while in the emergency department and it was necessary to start her on a nonrebreather. Labs obtained demonstrated renal failure with hyperkalemia. EKGs, as outlined above demonstrated a right bundle branch block pattern with nonspecific ST and T wave inversions throughout as well as a trend towards a sinusoidal activity. She was initially treated somewhat conservatively with insulin, dextrose, albuterol, calcium gluconate. Chest x-ray obtained demonstrated pulmonary edema consistent with a general f luid overloaded state. I did contact her who is her surrogate decision- maker to discuss the severity of her condition as well as to clarify her goals for care in a situation such as this. He indicated that in a situation such as this she would want her wishes, specifically her wish to be DNR comfort care only to be honored and to " with dignity". She was reevaluated multiple times throughout her ER stay and her mentation continued to decline, while at the same time she continued to have continuous marginal blood pressures and increased oxygen demand. At this time I will be signing her out to the oncoming physician, please see their documentation for further detail.
--- NOTE | 2021-07-12 20:23 | ED Physician Documentation ---
ED Addendum - Addendum Addendum: 07/12/21 20:[address] Mccabe at shift change. Briefly this was a lady who was being expectantly managed for end-of-life care. I was called into the room at 8:20 PM as the patient had apparently . She was flatlined into leans on the monitor. There was no rest pamela effort, no heart sounds. Pupils fixed and dilated. Time of 8:22 PM.
== END 2021-07-12 20:22 | disposition expired ==
LOC: ED 12:26
DX: I21.4 Non-ST elevation (NSTEMI) myocardial infarction (principal); E87.5 Hyperkalemia; I45.10 Unspecified right bundle-branch block; E11.22 Type 2 diabetes mellitus with diabetic chronic kidney disease; Z79.4 Long term (current) use of insulin; Z79.84 Long term (current) use of oral hypoglycemic drugs; I12.0 Hypertensive chronic kidney disease with stage 5 chronic kidney disease or end stage renal disease; N18.6 End stage renal disease; J81.1 Chronic pulmonary edema; I48.91 Unspecified atrial fibrillation; Z20.822 Contact with and (suspected) exposure to COVID-19
CPT/HCPCS: 36415; 71045; 80053; 82553; 83605; 83690; 83735; 84100; 84132; 84484; 85025; 85610; 87631; 93005; 94640; 96361; 96365; 96366; 96375; 96376; 99283; 99285; J1170; J2060; J7040; 0202U